=== PATIENT | female | born 1950 | race Native Hawaiian/Other Pacific Islander ===

== ENCOUNTER 2024-02-20 15:45 | Inpatient (IN) | payer MEDICARE, MEDICAID, SELFPAY ==
[2024-02-20] VITALS (39 sets, daily range): BP systolic 63–139; BP diastolic 36–114; PULSE 79–161; RESP 13–36; TEMP 37.1–38.3; O2SAT 77–100; BMI 36.0
--- NOTE | 2024-02-20 16:08 | EKG_ITS ---
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
--- NOTE | 2024-02-20 16:13 | XR_ITS ---
Examination: AP chest single view Technique one AP portable upright chest single view Exam date and time: February 20, 2024 6017 hours Comparison January 26, 2022 Indications: Gastrointestinal bleeding today. Findings: Extensive parenchymal disease right upper lobe Right internal jugular dialysis catheter tip satisfactory position Moderate enlargement left ventricle Moderate enlargement thoracic aorta Central pulmonary arteries are prominent Impression: Findings most consistent with prominent right upper lobe pneumonia, follow-up chest imaging is needed to document clearing Central pulmonary vascular congestion
--- NOTE | 2024-02-20 16:15 | PC.NURSE ---
Pt. here from [facility] to bed 7 for coughing up blood for a week, pt. is hypotensive, and pt. is a little more confused per facility staff at [facility]. Pt. is not confused here, pt. is GCS of 15, pt. states she is here because they just noticed she was coughing up blood today. Pt. has dialysis access to right upper chest and states she had 3 hour dialysis today, pt. states dialysis days are T,,Sat. Pt. states she is coughing up brownish red blood. Pt. lower extremities are very dark in color and pt. states they have been like that. Pt. is SOB and can speak in sentences but gets winded and takes a break between Dr. Fry questions.
[2024-02-20] MEDS: SODIUM CHLORIDE 0.9% 250 ML 250 ML 999 ML IV (16:50)
[2024-02-20] MEDS: cefTRIAXone/D5w 1gm IV premix 50 ML IV (16:51)
--- NOTE | 2024-02-20 16:54 | PD.EDGIBLD ---
ED GI Bleed RME/HPI General Chief complaint: GI Bleed Stated complaint: LOW BLOOD PRESSURE Time Seen by Provider: 02/20/24 16:36 Arrival date/time: 02/20/24 15:45 RME / HPI RME / HPI Narrative: DR. MORELAND MAIN ED EVALUATION: 73 year old female presents to the Emergency Department with complaint of hemoptysis onset 1 week. She states she has been coughing a lot and she has some brownish material coming out. Denies blood in the stools. She states she has been wheezing too. No abdominal pain. PMHx: CHF, diabetes type 2, hysterectomy and section. Social Hx: No tobacco, alcohol, or substance use. Related Data Home Medications ?Medication ?Instructions ?Recorded ?Confirmed acetaminophen 500 mg tablet 500 mg PO Q12HR PRN PAIN #0 tabs 10/13/16 01/27/22 (Tylenol Extra Strength) albuterol sulfate 2.5 mg/3 mL 2.5 mg HHN Q6H PRN sob #0 ea 10/13/16 01/27/22 (0.083 %) solution for nebulization allopurinol 100 mg tablet 100 mg PO QDAY #0 tabs 10/13/16 01/27/22 (Zyloprim) bumetanide 1 mg tablet 1 mg PO BID #0 tabs 10/13/16 01/27/22 bisacodyl 10 mg rectal suppository 10 mg AK Q72H PRN Constipation 12/09/21 01/27/22 (Dulcolax (bisacodyl)) bisacodyl 5 mg tablet,delayed 15 mg PO Q72H PRN Constipation 12/09/21 01/27/22 release calcium 500 mg (as 1 tab PO BID 12/09/21 01/27/22 carbonate)-vitamin D3 5 mcg (200 unit) tablet (Oyster Shell Calcium-Vitamin D3) calcium carbonate 1,500 mg PO Q8H PRN Indigestion 12/09/21 01/27/22 carvedilol 25 mg tablet 25 mg PO BID High Blood Pressure 12/09/21 01/27/22 cranberry extract 425 mg capsule 425 mg PO BID 12/09/21 01/27/22 diphenhydramine HCl 25 mg tablet 25 mg PO Q6H PRN Itching 12/09/21 01/27/22 docusate sodium 250 mg capsule 250 mg PO BID 12/09/21 01/27/22 fluticasone furoate 100 1 inh inhalation QDAY Asthma 12/09/21 01/27/22 mcg/actuation blister powder for inhalation (Arnuity Ellipta) hydralazine 50 mg tablet 50 mg PO QID High Blood Pressure 12/09/21 01/27/22 insulin glargine 100 unit/mL 8 unit subcut HS 12/09/21 01/27/22 subcutaneous solution (Lantus U-100 Insulin) liraglutide 0.6 mg/0.1 mL (18 mg/3 1.2 mg subcut DAILY 12/09/21 01/27/22 mL) subcutaneous pen injector (Victoza 3-Saurabh) loratadine 10 mg tablet 10 mg PO HS 12/09/21 01/27/22 losartan 100 mg tablet 100 mg PO BID High Blood Pressure 12/09/21 01/27/22 magnesium hydroxide 400 mg/5 mL 30 ml PO Q72H PRN Constipation 12/09/21 01/27/22 oral suspension (Milk of Magnesia) olopatadine 0.2 % eye drops 1 drp ophthalmic (eye) QDAY 12/09/21 01/27/22 pantoprazole 40 mg tablet,delayed 40 mg PO QDAY 12/09/21 01/27/22 release polyvinyl alcohol 1.4 % eye drops 1 drp ophthalmic (eye) Q6H PRN Dry 12/09/21 01/27/22 (Artificial Tears (polyvinyl Eyes alcohol)) ropinirole 0.5 mg tablet 0.5 mg PO UD 12/09/21 01/27/22 sodium phosphates 19 gram-7 118 ml AK Q72H PRN Constipation 12/09/21 01/27/22 gram/118 mL enema (Fleet Enema) vitamin B complex-vitamin C-folic 1 tab PO QDAY 12/09/21 01/27/22 acid 0.8 mg tablet (Nephro-Lorraine) amlodipine 10 mg tablet 10 mg PO UD 01/27/22 01/27/22 calcium acetate(phosphat bind) 667 667 mg PO TID 01/27/22 01/27/22 mg tablet fluticasone propionate 45 2 puff inhalation BID 01/27/22 01/27/22 mcg-salmeterol 21 mcg/actuation HFA inhaler Previous Rx's ?Medication ?Instructions ?Recorded amoxicillin 500 mg-potassium 1 tab PO BID #20 tabs 01/31/22 clavulanate 125 mg tablet (Augmentin) apixaban 2.5 mg tablet (Eliquis) 2.5 mg PO BID #60 tabs 01/31/22 ascorbate calcium (vitamin C) 500 500 mg PO BID #60 tabs 01/31/22 mg tablet zinc gluconate 50 mg tablet 50 mg PO QDAY #30 tabs 01/31/22 Allergies Allergy/AdvReac Type Severity Reaction Status Date / Time iodine Allergy Severe Swelling Verified 12/09/21 12:33 tetracycline Allergy Unknown FACE Verified 12/09/21 12:33 NUMBNESS Review of Systems Review of Systems Systems Reviewed: All systems reviewed, normal except as documented Narrative Review of Systems: GEN: No fever, no chills, no weight loss EYES: No discharge, no visual changes, no pain HEENT: No ear pain, no congestion, no sore throat PULM: No shortness of breath, + hemoptysis?, + cough CV: No chest pain, no dyspnea on exertion, no palpitations GI: No nausea, no vomiting, no diarrhea, no pain, no constipation : No frequency, no urgency and no dysuria MUSC/SKEL: No joint pain, no back pain SKIN: No rash PSYCH: No hallucinations, no depression HEME/LYMPH: No easy bleeding or bruising tendencies NEURO: No weakness, no headache Past Medical History Past Medical History CARDIAC: Positive Cardiac Disorders, Congestive Heart Failure and Congenital Heart Disease RESPIRATORY: Positive Chronic Obstructive Pulmonary Disease (COPD) and Asthma GENITOURINARY: Positive Renal Disease REPRODUCTIVE: Positive Previous Pregnancies ENDOCRINE: Positive Diabetes Mellitus Type 2; Negative Diabetes Mellitus Type 1 HEMATOLOGIC: Negative Sickle Cell Disease Family History FAMILY HISTORY: Positive Family Psychiatric Problems and Family Gastrointestinal Problems Surgical History SURGICAL: Positive Hysterectomy and Section Social History SMOKING STATUS: Never smoker SECOND HAND EXPOSURE: No ED Exam Narrative Physical exam: GENERAL APPEARANCE: Well hydrated, well nourished. Patient is huffing and puffing, coughing with brown material in the cough. VITALS: All vitals were reviewed and the pulse ox is 90% on room air which is hypoxic according to my interpretation. HEENT: Normocephalic, atramatic, EOMI, EACs are patent. There is no bulge or retraction. Throat without erythema or exudate. Moist oromucosa. No jaundice NECK: Supple, no JVD or bruits. CARDIOVASCULAR: Heart regular without S3-S4 or murmur. No rubs or gallops. LUNGS/CHEST: Rhonchi in the right upper area. ABDOMEN: Soft, nontender, with normal bowel sounds. No pulsatile masses. No rebound, rigidity, or guarding. No incarcerated hernia. Normal inspection and palpation. RECTAL: Rectal exam, female nurse bias cutter helper present at bedside, shows soft brown stools, guaiac negative. EXTREMITIES: No edema, clubbing, or cyanosis. Intact CSM. Normal inspection and palpation. SKIN: Warm and dry without rashes. Normal inspection. MUSCULOSKELETAL: No gross deformity, full ROM all extremities. Normal inspection. NEURO: Alert and oriented x3. Cranial nerves II through XII grossly intact. There are no other motor or sensory deficits noted. PSYCHIATRIC: Normal mood and affect. No psychosis. Course Course Course Narrative: 1800: Patient was signed out to Dr. Agrawal. Past medical, surgical, social and family history reviewed. Vitals and home medications reviewed. Results and treatment plan discussed. They will assume the care of the patient at this time and will follow the patient, pending remainder of diagnostics tests and final disposition. Quality Measures none Orders Category Date Time Status Bedside COVID-19 Antigen Test NOW Care 02/20/24 18:05 Active Bedside Influenza A&B Antigen Test NOW Care 02/20/24 18:06 Active EKG (ED ONLY) *Do not use* NOW Care 02/20/24 16:10 Completed EKG (ED Only) Stat Exams 02/20/24 16:08 Draft XR chest 1V portable Stat Exams 02/20/24 16:13 Completed B-Type Natriuretic Peptide Stat Lab 02/20/24 16:39 Completed Blood Culture (Lab) Stat Lab 02/20/24 18:07 Ordered CBC Stat Lab 02/20/24 17:56 Received Comprehensive Metabolic Panel Stat Lab 02/20/24 16:39 Completed Lactic Acid [Lactate (Lactic Acid)] Stat Lab 02/20/24 18:06 Ordered Procalcitonin Stat Lab 02/20/24 18:06 Ordered Troponin I Stat Lab 02/20/24 16:39 Completed Type and Screen Stat Lab 02/20/24 16:39 Results Urinalysis Stat Lab 02/20/24 16:10 Ordered Urine Culture Stat Lab 02/20/24 16:10 Ordered prbc [Red Blood Cells] Stat Lab 02/20/24 16:39 Results Acetaminophen Tab [Tylenol Tab] Med 02/20/24 18:05 Once 650 mg PO X1 ONE Norepinephrine/D5W 8mg/250ml [Levophed in D5W 8mg/250ml Med 02/20/24 17:32 Discontinued ] 8 mg in 250 ml IV .STK-MED Norepinephrine/NS 16mg/250ml [Levophed in NS 16mg/250ml Med 02/20/24 16:43 Pending ] 16 mg in 250 ml IV 0.05 mcg/kg/min Sodium Chloride 0.9% 250 ml [Ns] 250 ml Med 02/20/24 16:43 Discontinued IV 999 mls/hr cefTRIAXone/D5w 1gm IV premix [Rocephin/D5w 1gm IV Med 02/20/24 16:37 Discontinued premix] 50 ml IV X1 Vital Signs Vital signs: Vital Signs Temperature 99.4 F 02/20/24 16:24 Pulse Rate 123 H 02/20/24 16:24 Respiratory Rate 31 H 02/20/24 16:24 Blood Pressure 73/42 L 02/20/24 16:24 Pulse Oximetry (%) 90 L 02/20/24 16:24 Oxygen Delivery Method Room Air 02/20/24 16:24 GI Bleed MDM Narrative MDM Narrative:: I, Margaret Bose, am scribing for and in the presence of Dr. Moreland. Patient presented here for coughing up blood. The patient is very adamant that she did not vomit or having any bloody stool. I did rectal exam on her and found out that her stool was yellow and white is negative. She did not have fever when she first came in. And she been coughing. But she is alert awake oriented x 4 GCS of 15. O2 saturation of 100% on 2 L. Therefore I did not see any reason to intubate her at that time. As far as the blood pressure was concerned it was low. I gave her 250 normal saline bolus but he did not do anything. Concerning about the fact that she is renal failure, I ordered for Levophed drip. Levophed drip is being hungry now. Chest x-ray by me: Evidence of right upper lobe pneumonia. Heart normal. Mediastinum normal. Vas-Cath is in good position. No pneumohemothorax. Twelve-lead EKG that was done at 1710 by me: Sinus rhythm. Heart rate of 116. Normal axis. No ST elevation or depression. No PVC. No STEMI. Regular rate and rhythm. So far CBC is still pending. BUN and creatinine of 42 and 5.8 respectively secondary to end-stage renal failure. Troponin level is 0.146. BNP is more than 3000 which is consistent with renal failure. Pending MAGEN COVID-19, influenza, lactic acid, procalcitonin and blood cultures x 2. 5:45 PM I spoke to discussed with Dr. bowling pc support specialist attending and also his ICU resident. They agreed to assess the patient for admission to the ICU. 5:55 PM, just before I left the ER because my shift ends at 6 PM, the patient spiked a fever to 101. I am starting the sepsis workup. I am ordering for lactic acid, procalcitonin, blood culture and Tylenol. Results are pending of course. I also ordered for COVID-19 and influenza. Result is also pending. 6 PM, the end of my shift and the beginning of Dr. Ca. The patient is stable and is signed out to Dr. Agrawal pending ICU evaluation and admission. Critical care time is approximately 45 minutes excluding any procedure. The high probability of sudden, clinically significant deterioration in the patient?s condition required the highest level of my preparedness to intervene urgently. The services I provided to this patient were to treat and/or prevent clinically significant deterioration. Services included the following: chart data review, reviewing nursing notes and/or old charts, documentation time, home energy consultant supervisor collaboration regarding findings and treatment options, medication orders and management, direct patient care, vital sign assessments and ordering, interpreting and reviewing diagnostic studies and lab tests. Aggregate critical care time includes only time during which I was engaged in work directly related to the patient?s care, as described above, whether at bedside or elsewhere in the Emergency Department. It did not include time spent performing other reported procedures or the services of residents, students, nurses or physician assistants. Patient data External records reviewed:: [facility] previous records (Reviewed last ED visit dated 08/12/23, discharged with the following: ESRD (end stage renal disease).) and EMS form Clinical information provided by:: patient and EMS Social determinants that could affect healthcare access:: none Patient has the following chronic illnesses:: CHF, diabetes type 2, hysterectomy and section. How is presenting disease/condition affected by chronic disease/condition?: uneffected by Evaluation data The following diagnostics were reviewed and interpreted by me:: lab results, radiology exam(s) and EKG tracing(s) Lab and/or radiology exams considered but not ordered:: none Interpretation Summary: See above under MDM narrative. RADIOLOGY Procedure(s): XR chest 1V portable Accession Number(s): [id number] cc: Tha Kaplan MD; Jake Moreland MD~ Examination: AP chest single view Technique one AP portable upright chest single view Exam date and time: February 20, 2024 6017 hours Comparison January 26, 2022 Indications: Gastrointestinal bleeding today. Findings: Extensive parenchymal disease right upper lobe Right internal jugular dialysis catheter tip satisfactory position Moderate enlargement left ventricle Moderate enlargement thoracic aorta Central pulmonary arteries are prominent Impression: Findings most consistent with prominent right upper lobe pneumonia, follow-up chest imaging is needed to document clearing Central pulmonary vascular congestion Dictated By: Tha Kaplan MD Medications / Prescriptions Medications or Prescriptions considered but not ordered:: none Medication administrations:: Medication Administration History Norepinephrine Bitartrate (Levophed In Ns 16mg/250ml) 16 mg in 250 mls @ 0 mls/hr IV .Q0M PRN; Protocol PRN Reason: PER protocol Stop: 03/21/24 16:42 Discontinued Medications Ceftriaxone Sodium/Dextrose (Rocephin/D5w 1gm Iv Premix) 50 mls @ 100 mls/hr IV X1 ONE Stop: 02/20/24 17:06 Last Infusion: 02/20/24 17:21 Dose: Infused Documented By: Admin: 02/20/24 16:51 Dose: 100 mls/hr Documented By: ED Sodium Chloride (Ns) 250 mls @ 999 mls/hr IV .Q16M ONE Stop: 02/20/24 16:58 Last Infusion: 02/20/24 17:06 Dose: Infused Documented By: Admin: 02/20/24 16:50 Dose: 999 mls/hr Documented By: ED Norepinephrine/Dextrose (Levophed In D5w 8mg/250ml) Confirm Administered Dose 8 mg in 250 mls @ ud IV .STK-MED ONE Stop: 02/20/24 17:33 Last Admin: 02/20/24 17:55 Dose: 7.6 mls/hr Documented By: ED see above Consultations Consultation(s) initiated? (list below): No Diagnosis GI bleed differential diagnosis: other (Apparently there is no GI bleed. Only hemoptysis. And pneumonia.) Most likely diagnosis given after review of the tests above:: Hemoptysis. Pneumonia. end staged renal disease Admission Indicated Admission indicated?: not indicated Explain why admission is indicated or not indicated:: No final disposition plan at this time, still pending diagnostic tests. Patient signout to the overnight caregiver provider. Admission Request Was there a request for admission?: No Disposition Plan Disposition Plan: other (specify) (Patient signout to the overnight caregiver provider. ) Discharge Plan Plan Disposition Comment: Stable at signout. Prescriptions/Referrals Prescriptions/Med Rec: No Action albuterol sulfate 2.5 MG/3 ML solution for nebulization 2.5 mg HHN Q6H PRN (Reason: sob) Qty: 0 allopurinol [Zyloprim] 100 MG tablet 100 mg PO QDAY Qty: 0 acetaminophen [Tylenol Extra Strength] 500 MG tablet 500 mg PO Q12HR PRN (Reason: PAIN) Qty: 0 bumetanide 1 MG tablet 1 mg PO BID Qty: 0 calcium acetate(phosphat bind) 667 mg Tablet 667 mg PO TID fluticasone propion-salmeterol 45-21 mcg/actuation Hfa Aerosol Inhaler 2 puff INHALATION BID amlodipine 10 mg Tablet 10 mg PO UD Rx Instructions: 10 MG THURSDAY, THURSDAY, THURSDAY, THURSDAY zinc gluconate 50 mg Tablet 50 mg PO QDAY Qty: 30 0RF Eliquis 2.5 mg Tablet 2.5 mg PO BID Qty: 60 0RF ascorbate calcium (vitamin C) 500 mg tablet 500 mg PO BID Qty: 60 0RF amoxicillin-pot clavulanate [Augmentin] 500-125 mg tablet 1 tab PO BID Qty: 20 0RF cranberry extract 425 mg Capsule 425 mg PO BID carvedilol 25 mg Tablet 25 mg PO BID Rx Instructions: must administer with a meal/food insulin glargine [Lantus U-100 Insulin] 100 unit/mL Solution 8 unit SUBCUT HS polyvinyl alcohol [Artificial Tears (polyvin alc)] 1.4 % Drops 1 drp OPHTHALMIC (EYE) Q6H PRN (Reason: Dry Eyes) magnesium hydroxide [Milk of Magnesia] 400 mg/5 mL Suspension 30 ml PO Q72H PRN (Reason: Constipation) bisacodyl [Dulcolax (bisacodyl)] 10 mg Suppository 10 mg AK Q72H PRN (Reason: Constipation) pantoprazole 40 mg Tablet,Delayed Release (Dr/Ec) 40 mg PO QDAY ropinirole 0.5 mg Tablet 0.5 mg PO UD Rx Instructions: Give 0.5 mg po qd on THU, VANI, and SAT only diphenhydramine HCl 25 mg Tablet 25 mg PO Q6H PRN (Reason: Itching) Fleet Enema 19-7 gram/118 mL Enema 118 ml AK Q72H PRN (Reason: Constipation) Nephro-Lorraine 0.8 mg Tablet 1 tab PO QDAY bisacodyl 5 mg Tablet,Delayed Release (Dr/Ec) 15 mg PO Q72H PRN (Reason: Constipation) calcium carbonate 500 mg calcium (1,250 mg) Tablet,Chewable 1,500 mg PO Q8H PRN (Reason: Indigestion) hydralazine 50 mg Tablet 50 mg PO QID docusate sodium 250 mg Capsule 250 mg PO BID losartan 100 mg Tablet 100 mg PO BID loratadine 10 mg Tablet 10 mg PO HS calcium carbonate-vitamin D3 [Oyster Shell Calcium-Vit D3] 500 mg-5 mcg (200 unit) Tablet 1 tab PO BID olopatadine 0.2 % Drops 1 drp OPHTHALMIC (EYE) QDAY Victoza 3-Saurabh 0.6 mg/0.1 mL (18 mg/3 mL) pen injector 1.2 mg SUBCUT DAILY Arnuity Ellipta 100 mcg/actuation Blister With Device 1 inh INHALATION QDAY Problem List Clinical Impression: Hemoptysis, End stage renal disease on dialysis, Pneumonia, Acute hypotension Patient/Caregiver Discharge Instructions Print Language: Cymro
[2024-02-20 16:55] LABS: Basophils % (Auto) 0 % (0-2.5); Eosinophils % (Auto) 0 % (0-10); Monocytes # (Auto) 1.1 Thou/mm3 (0.0-0.8); Monocytes % (Auto) 8 % (0-12); Nucleated Red Blood Cell % 0 /100 WBC (0)
[2024-02-20 17:25] LABS: B-Type Natriuretic Peptide > 3280 pg/mL (0-100)
[2024-02-20 17:30] LABS: Alanine Aminotransferase < 7 U/L (10-49); Albumin, Serum 4.4 gm/dL (3.4-4.8); Albumin/Globulin Ratio 1.3 (1.2-2.2); Alkaline Phosphatase 70 U/L (46-116); Anion Gap 16 (7-16); Aspartate Amino Transferase 25 U/L (0-34); BUN/Creatinine Ratio 7 Ratio (12-20); Bilirubin,Total 0.5 mg/dL (0.3-1.2); Blood Urea Nitrogen 42 mg/dL (9-23); Carbon Dioxide 23.3 mMol/L (20.0-31.0); Chloride 96 mMol/L (98-107); Creatinine (Component) 5.8 mg/dL (0.6-1.3); Globulin 3.3 gm/dL (2.3-3.5); Glucose 158 mg/dL (74-106); Osmolality,Calculated 283 (275-295); Potassium 4.6 mMol/L (3.4-5.1); Sodium 135 mMol/L (136-145); Total Protein 7.7 gm/dL (5.7-8.2); eGFR 7 See Note
[2024-02-20 17:37] LABS: Troponin I 0.146 ng/mL (0.0-0.045)
--- NOTE | 2024-02-20 17:56 | PC.NURSE ---
Pt. stating she wanted to go to [facility], pt. has a fistula to left arm.
[2024-02-20 18:04] LABS: Hemoglobin 11.2 g/dL (12.0-16.0); Immature Granulocytes % (Auto) 1 % (0-0); Immature Granulocytes Auto 0.15 Thou/mm3 (0.00-0.00); Lymphocytes # (Auto) 0.6 Thou/mm3 (1.0-4.8); Lymphocytes % (Auto) 4 % (10-50); Mean Corpuscular Hemoglobin 32.7 pg (25.0-35.0); Mean Corpuscular Volume 102 fL (80-100); Neutrophils # (Auto) 12.2 Thou/mm3 (1.8-7.7); Neutrophils % (Auto) 87 % (37-80); Red Blood Count 3.43 Miln/mm3 (4.00-5.20)
[2024-02-20 18:07] LABS: Platelet Count 80 Thou/mm3 (140-440)
--- NOTE | 2024-02-20 18:10 | PD.EDADDENDU ---
Emergency Room Addendum <Margaret Bose - Last Filed: 02/20/24 18:10> Addendum Narrative: 1800: Care assumed from Dr. Fry, the previous shift emergency physician. Past medical, surgical, social and family history reviewed. Vitals and home medications reviewed. I will assume the care of the patient at this time, pending diagnostics tests and final disposition. Please refer to the emergency department record for history and examination from initial visit.? Physical exam by me shows patient under no acute distress at this time. <Montse Agrawal MD - Last Filed: 02/20/24 18:31> Addendum Narrative: 1800: Care assumed from Dr. Fry, the previous shift emergency physician. Past medical, surgical, social and family history reviewed. Vitals and home medications reviewed. I will assume the care of the patient at this time, pending diagnostics tests and final disposition. Please refer to the emergency department record for history and examination from initial visit.? Patient is awake blood pressure 116/80. At this time she does not want a central line. The hemodialysis catheter will be used for access if needed but the patient does have 2 lines. The patient is admitted at this time she does not need any further care from the emergency department.
--- NOTE | 2024-02-20 18:25 | PC.NURSE ---
Dr. Alcantar and Dr. Carrion are bedside talking with pt. and pt. refusing central line, pt. stating she has 3 developmentally delayed daughters and she raised them on her own, pt. states she needs to talk to them first. Pt. coughing up thick blood sputum.
[2024-02-20] MEDS: ACETAMINOPHEN 325 MG TABLET 650 MG PO (18:38)
--- NOTE | 2024-02-20 18:51 | XR_ITS ---
Examination: CT chest, without intravenous contrast. Sagittal and coronal 2-D reconstructions. Exam date and time: February 20, 2024 1747 hrs. Indications: Onset hemoptysis today CTDI:vol (mGy) 19.1 DLP: (mGycm) 744 Technique: Multiple 3.0 mm axial sections of the chest to been obtained. Bone and lung density settings are obtained. Sagittal and coronal 2-D reconstructions have been obtained. Low dose protocols were performed. One or more of the following dose reduction techniques were used; automated exposure control, adjustment of the mA and/or KV according to patient size, use of iterative reconstruction technique. Findings: AP dimension ascending thoracic aorta 4 cm Pulmonary artery segments are not enlarged Heavy calcification left anterior descending coronary artery Mild enlargement left ventricle Prominent pneumonia in the right upper lobe Mild vascular congestion No pleural disease No visualized liver or splenic lesion Absent gallbladder No pancreatic or adrenal mass Atrophic kidneys with severe renal cortical thinning Impression: Dense consolidation right upper lobe most consistent with pneumonia Follow-up chest imaging is needed to document clearing
[2024-02-20 18:59] LABS: Procalcitonin 2.14 ng/ml (0.0-0.49)
[2024-02-20] MEDS: Norepinephrine/D5W 8mg/250ml 8 MG/250 ML BAG 7.584 MG IV (19:00)
--- NOTE | 2024-02-20 19:11 | PC.RT ---
pt able to expectora a pink, red frothy secretions sent to lab obtained at 19;07.
--- NOTE | 2024-02-20 19:12 | ESHP_ITS ---
<Statement entered by Rik Carrion DO - 02/20/24 22:25> Senior attestation: Patient was examined and case was reviewed with team including attending physician. Note reviewed, I agree with most of its contents and agree with the patient's care. In summary, patient is a 73 year old female with history of ESRD on HD (//Thu), hypertension, T2DM, restless leg syndrome, asthma, and stomach ulcer who presented to the ED from SNF with concerns of hemoptysis for 2 weeks, was found to be hypotensive with recorded blood pressure 73/42 upon arrival. Patient was started on levophed in the ED, imaging findings suggesting RUL PNA. Patient will be admitted to ICU further management of septic shock likely secondary to healthcare-associated RUL PNA, will be started on broad spectrum IV abx (vancomycin and zosyn), will give gentle fluids given ESRD history, and order blood/urine cultures. Will further investigate pneumonia with cocci, RSV, influenzae, asperigillus, and sputum cultures, chest CT ordered with possible V/Q scan planned pending CT results for possible pulmonary embolism. Will consult bolt machine operator Dr. Beltre for patient's ESRD history and dialysis sessions, we appreciate recommendations. Of note, patient was AOx3 and agreeable for ICU admission, stated DNR/DNI code status and refused a central line placement at this time. Will continue pressors peripherally at this time, wean down as tolerated. Rik Carrion DO PGY-3 Documentation for date of: 02/20/24 HPI History of Present Illness Chief complaint: coughing up blood History of present illness: Jennifer Medina is a 73 yr female with PMH of ESRD on HD (/THU/THU), hypertension, T2 diabetes mellitus, restless leg syndrome, asthma, and stomach ulcer who presented to ED from SNF after coughing up blood from past 1-2 weeks. Patient is poor historian and not willing to share much history and refusing to answer questions. Medical history was obtained from chart review. Patient denied any fever. However endorses shortness of breath, bright red stool in rectum due to hemorrhoids, fatigue. Patient stated that she has a previous endoscopy which showed stomach ulcer. In Ed, vitals significant for hypotension 73/42, tachycardia 123, tachypneic 31, temperature 101, saturating 90% on room air. Labs revealed leukocytosis WBC 14, mild anemia hemoglobin 11.2, MCV 102, thrombocytopenia 80, sodium 135, potassium 4.6, CR 5.8, glucose 158, troponin elevated 0.146, BNP greater than 3280, procalcitonin 2.14. Diagnostic testing reveals Right upper lobe pneumonia and Potter hump on chest x-ray. EKG negative for any acute ischemic changes. Patient was given 250 mL bolus normal saline, ceftriaxone x 1, nor epi, and Zosyn x 1. It was explained to patient that there will be need central catheter procedure. However patient refused and stated that she did not want any aggressive life-saving measures. At this time patient is DNR/DNI. GI Dr. Pate and nephrology Dr. Orellana were consulted. Patient admitted for septic shock secondary to pneumonia and evaluation of hemoptysis. PMH: as noted above PSH: Refused to answer FamHx: Refused to answer Social: Stays at SNF, has 3 daughters with mental disability. Denies any drinking, drug use. Review of Systems Constitutional Constitutional: Reports system reviewed and no additional complaints, except as documented Exam Vital Signs Temp Pulse Resp BP Pulse Ox O2 Del Method O2 Flow Rate 101.0 F H 126 H 23 H 116/88 H 96 Nasal Cannula 2 02/20/24 18:38 02/20/24 19:10 02/20/24 19:10 02/20/24 18:20 02/20/24 19:10 02/20/24 18:20 02/20/24 19:10 Narrative Exam General: Alert and oriented x3. No acute distress, uncooperative Eyes: Pupils are equal and reactive to light bilaterally HEENT: Atraumatic, normocephalic. No JVD noted. Mucosa dry with dried blood on mucosa. Cardiovascular: Normal S1 and S2. Regular rate and rhythm. No pitting edema Respiratory: Lungs are clear to auscultation bilaterally. No wheezing or crackles heard. Abdomen: Soft, nontender, not distended, normal bowel sounds. Skin: Warm to touch, dry, no rashes noted, bilateral lower extremity significant for venous stasis dermatitis, very dark and discolored Musculoskeletal: No gross injuries. Able to move all 4 extremities. Neuro: Alert and oriented x3. No focal neuro deficits. Psych: Normal affect and mood Results: Labs 02/24/24 05:35 02/24/24 05:35 Labs: Short CBC 02/20/24 Range/Units 17:56 WBC 14.0 H (3.6-11.0) Thou/mm3 Hgb 11.2 L (12.0-16.0) g/dL Hct 35.0 L (36.0-46.0) % Plt Count 80 L (140-440) Thou/mm3 BMP 02/20/24 16:39 Sodium 135 L Potassium 4.6 Chloride 96 L Carbon Dioxide 23.3 BUN 42 H Creatinine 5.8 H* Glucose 158 H Calcium 9.0 Cardiac Enzymes 02/20/24 Range/Units 16:39 Troponin I 0.146 H* (0.0-0.045) ng/mL Liver Function 02/20/24 Range/Units 16:39 Total Bilirubin 0.5 (0.3-1.2) mg/dL AST 25 (0-34) U/L ALT < 7 L (10-49) U/L Alkaline Phosphatase 70 (46-116) U/L Albumin 4.4 (3.4-4.8) gm/dL Quality Measures Quality Measures none Advance care planning discussed with:: patient Medications Home Medications and Allergies Home Medications ?Medication ?Instructions ?Recorded ?Confirmed ?Type acetaminophen 500 mg tablet 500 mg PO Q12HR PRN PAIN #0 tabs 10/13/16 02/21/24 History (Tylenol Extra Strength) albuterol sulfate 2.5 mg/3 mL 2.5 mg HHN Q6H PRN sob #0 ea 10/13/16 01/27/22 History (0.083 %) solution for nebulization allopurinol 100 mg tablet 100 mg PO QDAY #0 tabs 10/13/16 01/27/22 History (Zyloprim) bumetanide 1 mg tablet 1 mg PO BID #0 tabs 10/13/16 02/21/24 History bisacodyl 10 mg rectal suppository 10 mg MT Q72H PRN Constipation 12/09/21 02/21/24 History (Dulcolax (bisacodyl)) bisacodyl 5 mg tablet,delayed 15 mg PO Q72H PRN Constipation 12/09/21 02/21/24 History release calcium 500 mg (as 1 tab PO BID 12/09/21 02/21/24 History carbonate)-vitamin D3 5 mcg (200 unit) tablet (Oyster Shell Calcium-Vitamin D3) calcium carbonate 750 mg PO Q8H PRN Indigestion 12/09/21 01/27/22 History carvedilol 25 mg tablet 25 mg PO BID High Blood Pressure 12/09/21 01/27/22 History cranberry extract 425 mg capsule 425 mg PO BID 12/09/21 02/21/24 History diphenhydramine HCl 25 mg tablet 25 mg PO Q6H PRN Itching 12/09/21 02/21/24 History docusate sodium 250 mg capsule 250 mg PO BID 12/09/21 02/21/24 History fluticasone furoate 100 1 inh inhalation QDAY Asthma 12/09/21 01/27/22 History mcg/actuation blister powder for inhalation (Arnuity Ellipta) hydralazine 50 mg tablet 50 mg PO QID High Blood Pressure 12/09/21 01/27/22 History insulin glargine 100 unit/mL 12 unit subcut HS 12/09/21 02/21/24 History subcutaneous solution (Lantus U-100 Insulin) liraglutide 0.6 mg/0.1 mL (18 mg/3 1.2 mg subcut DAILY 12/09/21 01/27/22 History mL) subcutaneous pen injector (Victoza 3-Saurabh) loratadine 10 mg tablet 10 mg PO HS allergies 12/09/21 02/21/24 History losartan 100 mg tablet 100 mg PO QDAY High Blood Pressure 12/09/21 02/21/24 History magnesium hydroxide 400 mg/5 mL 30 ml PO Q72H PRN Constipation 12/09/21 01/27/22 History oral suspension (Milk of Magnesia) olopatadine 0.2 % eye drops 1 drp ophthalmic (eye) QDAY 12/09/21 02/21/24 History pantoprazole 40 mg tablet,delayed 40 mg PO QDAY 12/09/21 02/21/24 History release polyvinyl alcohol 1.4 % eye drops 1 drp ophthalmic (eye) Q6H PRN Dry 12/09/21 02/21/24 History (Artificial Tears (polyvinyl Eyes alcohol)) ropinirole 0.5 mg tablet 0.5 mg PO UD restless leg syndrome 12/09/21 02/21/24 History after dialysis sodium phosphates 19 gram-7 118 ml MT Q72H PRN Constipation 12/09/21 02/21/24 History gram/118 mL enema (Fleet Enema) vitamin B complex-vitamin C-folic 1 tab PO QDAY 12/09/21 02/21/24 History acid 0.8 mg tablet (Nephro-Lorraine) amlodipine 10 mg tablet 10 mg PO UD 01/27/22 02/21/24 History calcium acetate(phosphat bind) 667 667 mg PO TID 01/27/22 02/21/24 History mg tablet fluticasone propionate 45 1 puff inhalation BID 01/27/22 02/21/24 History mcg-salmeterol 21 mcg/actuation HFA inhaler acetaminophen 500 mg tablet mg 02/21/24 History baclofen 10 mg tablet 10 mg PO Q6H PRN muscle spasms 02/21/24 02/21/24 History dulaglutide 0.75 mg/0.5 mL 0.75 mg subcut QWEEK 02/21/24 02/21/24 History subcutaneous [facility]) glucagon 1 mg injection kit mg 02/21/24 02/21/24 History insulin aspart U-100 100 unit/mL 1 sliding scale dose subcut 02/21/24 History subcutaneous solution (Novolog USEASDIRECTD U-100 Insulin aspart) levofloxacin 250 mg tablet 250 mg PO QDAY 02/21/24 02/21/24 History metoprolol tartrate 25 mg tablet 25 mg PO BID 02/21/24 02/21/24 History Allergies Allergy/AdvReac Type Severity Reaction Status Date / Time iodine Allergy Severe Swelling Verified 12/09/21 12:33 tetracycline Allergy Unknown FACE Verified 12/09/21 12:33 NUMBNESS Visit Medications Acetaminophen (Acetaminophen 325 Mg Tablet) 650 mg PO Q6H PRN PRN Reason: Fever >101.5 Stop: 03/21/24 18:39 Dextrose (Dextrose 50%-Water Inj 50 Ml Syringe) 25 ml IV Q15MIN PRN PRN Reason: BG 50-70 responsive npo pt Stop: 03/21/24 18:51 Dextrose (Dextrose 50%-Water Inj 50 Ml Syringe) 50 ml IV Q15MIN PRN PRN Reason: BG <50 OR BG <70 & pt unresponsive Stop: 03/21/24 18:51 Glucagon (Glucagon Inj 1 Mg Vial) 1 mg IM Q15MIN PRN PRN Reason: BG <70, and no IV access Sodium Chloride (Ns) 1,000 mls @ 75 mls/hr IV .[id number] [facility] Stop: 03/21/24 18:44 Piperacillin Sod/Tazobactam (Sod 4.5 gm/ Sodium Chloride) 100 mls @ 200 mls/hr IV Q6HR NEMO Stop: 02/27/24 18:48 Vancomycin/Sodium Chloride (Vancomycin/Ns 1 Gm Ivpb) 200 mls @ 120 mls/hr IV X1 ONE Stop: 02/20/24 20:39 Piperacillin Sod/Tazobactam (Sod 4.5 gm/ Sodium Chloride) 100 mls @ 200 mls/hr IV X1 ONE Stop: 02/20/24 19:44 Norepinephrine/Dextrose (Levophed In D5w 8mg/250ml) 8 mg in 250 mls @ 7.584 mls/hr IV .Q24H PRN; Protocol PRN Reason: PER PROTOCOL Stop: 03/21/24 17:54 Insulin Human Lispro (Insulin Lispro (Admelog) 1 Unit/0.01 Ml Unit) 0 unit SC Q6HR NEMO; Protocol Stop: 03/21/24 18:59 Ondansetron HCl (Ondansetron Inj 2 Mg/Ml Inj 2 Ml) 4 mg IV Q6H PRN; Protocol PRN Reason: NAUSEA OR VOMITING Stop: 03/21/24 18:39 Pharmacy Consult (Vancomycin Pharmacy To Dose 1 Each Each) 1 each IV QDAY PRN PRN Reason: CONSULT Stop: 03/21/24 18:59 Discontinued Medications Acetaminophen (Acetaminophen 325 Mg Tablet) 650 mg PO X1 ONE Stop: 02/20/24 18:06 Last Admin: 02/20/24 18:38 Dose: 650 mg Ceftriaxone Sodium/Dextrose (Rocephin/D5w 1gm Iv Premix) 50 mls @ 100 mls/hr IV X1 ONE Stop: 02/20/24 17:06 Last Infusion: 02/20/24 17:21 Dose: Infused Sodium Chloride (Ns) 250 mls @ 999 mls/hr IV .Q16M ONE Stop: 02/20/24 16:58 Last Infusion: 02/20/24 17:06 Dose: Infused Norepinephrine Bitartrate (Levophed In Ns 16mg/250ml) 16 mg in 250 mls @ 3.792 mls/hr IV .Q24H PRN; Protocol PRN Reason: PER protocol Stop: 03/21/24 16:42 Sodium Chloride (Ns) 250 mls @ 999 mls/hr IV .Q16M ONE Stop: 02/20/24 18:55 Last Admin: 02/20/24 19:00 Dose: Not Given Sodium Chloride (Sodium Chloride Rt 10% 15 Ml Nebu) 5 ml INH X1 ONE Stop: 02/20/24 18:41 Last Admin: 02/20/24 19:09 Dose: Not Given Assessment & Plan Plan Jennifer Medina is a 73 yr female with PMH of ESRD on HD (T/VANI/SAT), hypertension, T2 diabetes mellitus, restless leg syndrome, asthma, and stomach ulcer who presented to ED from SNF after coughing up blood from past 1-2 weeks. Patient is poor historian and not willing to share much history and refusing to answer questions. GI Dr. Pate and nephrology Dr. Orellana were consulted. Patient admitted for septic shock secondary to pneumonia and evaluation of hemoptysis. Neuro: No active problems Cardiovasc: #Septic shock 2/2 pneumonia Etiology: Most likely HAP as patient resides in nursing facility. Patient presented with elevated WBC, tachycardia, fever, tachypnea. MAP 52. She was started on norepinephrine subsequent improvement of MAP and blood pressure. -Continue norepinephrine per sepsis protocol -Continue to monitor blood pressure and MAP goal greater than 65 -Antibiotics in place (refer below) #Elevated troponins 0.146 on admission. Patient denies any chest pain, no acute ischemic changes on EKG. -Trend troponin levels 3 times every 6 hours #Suspected CHF Patient does not appear to be fluid overloaded on exam. No crackles auscultated. No documented recent echo. BNP on admission greater than 3280. -echo pending Pulm: #Septic shock 2/2 HAP Defer CTA as of right now due to history of contrast allergy. -CT chest pending -VQ scan pending -Start vancomycin/Zosyn for MRSA and Pseudomonas coverage -trend lactic acid every 4 hrs #Hemoptysis Etiology: Underlying stomach ulcer, cocci, viral infection, fungal infection, cancer, PE, PA H, Hx thrombocytopenia Presenting since past 1-2 weeks. Denies any headache, dizziness. -Follow-up on diagnostic imaging as noted above Renal: #Hx ESRD on hemodialysis Nephrology Dr. Orellana was consulted -Recommendations pending GI: #Hx stomach ulcer -Continue pantoprazole 40 mg IV daily Endo: #History of type 2 diabetes On admission initial glucose 158. Last A1c 5.4 on 01/28/2022. -Held home medications -Bedside blood glucose checks ACHS -Insulin lispro sliding scale -Carb consistent low diet -A1c pending Heme/Onc: #Macrocytic anemia Etiology: Folate deficiency, B12 deficiency Hemoglobin 11.2, MCV 102 -Continue to monitor #Hx thrombocytopenia Etiology: Possibly due to underlying end-stage renal disease. Patient has never had workup for underlying cause. On admission platelet count 80 -Monitor with daily CBC ID: #Septic shock 2/2 pneumonia Etiology: Most likely hospital-acquired pneumonia as patient resides in SNF. Hemoptysis indicating also underlying pulmonary disease such as viral, fungal infection. Chest x-ray showedParenchymal disease in right upper lobe, Potter hump. -Follow-up with aspergillosis antigen test -Blood cultures pending ? Urine cultures pending ? Cocci serology pending ? Influenza panel pending ? RSV pending ? Sputum culture, Gram stain pending -Start vancomycin and4.5 g IV Zosyn every 6 hours Health maintenance: Dispo: ICU for management of septic shock secondary to pneumonia and evaluation of hemoptysis DVT prophylaxis: SCDs CODE STATUS:DNR Diet: Low carb consistent The patient's management plan was discussed with my attending physician Dr. De Paz and seniors Dr. Carrion/Dr. Alcantar. Naty Mathew, PGY-1 Attending Provider Attestation/Addendum Patient was not seen on date of service. He was notified of admission by the above resident, Naty Mathew MD. patient noted history of end-stage renal disease on hemodialysis and volume overload who presented with ongoing hemoptysis with significant right upper lobe infiltrates. Follow-up sputum culture and sampling for other potential etiologies. Viral etiology to be excluded as well. The patient also with mostly parenchymal disease making pulmonary embolism less likely though this cannot be excluded. She has a contrast allergy and thus we are not able to perform CTA at this time. Was criteria suggestive of intermediate possibility though infection seems the most likely cause given that she has evolving severe sepsis with septic shock now. I agree with the broad-spectrum antibiotics at this point given she is a resident of SNF. I remain available overnight for any concerns/questions and will follow-up with the patient tomorrow morning during rounds.
--- NOTE | 2024-02-20 19:15 | PC.NURSE ---
Assumed care of pt. Pt A&O x4, GCS 15. Received report from hernan Luna. Pt on Levophed drip that per report was started at 1755. Pt on 2L NC, tolerating well. VS updated. Pt not actively coughing blood at this time but has dried blood noted around mouth. UA ordered but pt states she does not make urine. Refusing straight cath at this time. Bed locked in lowest position, call light within reach.
[2024-02-20] MEDS: PIPER/TAZO INJ 4.5 GM in SODIUM CHLORIDE 0.9% (P) 100 ML IV (19:22)
[2024-02-20] MEDS: SODIUM CHLORIDE 0.9% 1000 ML 1,000 ML 75 ML IV (19:22)
--- NOTE | 2024-02-20 19:25 | ECHO_ITS ---
Transthoracic Echo Report Ht (in): 59 Wt (lb): 178 Exam Location: Portable Status: Inpatient Inspector Conveyor Line: Lou Melo Indications: Procedure Performed: BP: 112 / 62 HR: 94 Rhythm: Tachycardia Technical Quality: Technically difficult study MEASUREMENTS (Male / Female) Normal Values 2D ECHO LVOT Diameter 1.9 cm Ascending Aorta Diameter 4.3 cm M-MODE Aortic Root Diameter MM 2.6 cm LA Systolic Diameter MM 2.3 cm LA Ao Ratio MM 0.9 AV Cusp Separation MM 1.7 cm DOPPLER AV Peak Velocity 146.0 cm/s AV Peak Gradient 8.5 mmHg AV Mean Gradient 5.0 mmHg AV Velocity Time Integral 23.2 cm LVOT Peak Velocity 103.0 cm/s LVOT Peak Gradient 4.2 mmHg LVOT Velocity Time Integral 20.7 cm LVOT Cardiac Index 2942.1 cm?/min?m? AV Area Cont Eq vti 2.5 cm? AV Area Cont Eq pk 2.0 cm? MV Peak Velocity 76.0 cm/s MV Peak Gradient 2.3 mmHg MV Mean Velocity 54.8 cm/s MV Mean Gradient 1.0 mmHg MV Area PHT 3.8 cm? Mitral E Point Velocity 86.9 cm/s Mitral A Point Velocity 85.5 cm/s Mitral E to A Ratio 1.0 LV E' Lateral Velocity 6.4 cm/s Mitral E to LV E' Lateral Ratio 13.5 LV E' Septal Velocity 4.7 cm/s Mitral E to LV E' Septal Ratio 18.6 TR Peak Velocity 257.0 cm/s TR Peak Gradient 26.4 mmHg FINDINGS Left Ventricle Normal left ventricular size, wall thickness, systolic function with no obvious regional wall motion abnormalities. The ejection fraction is visually estimated at 50-55 %. Right Ventricle The right ventricle is severely dilated. Mild systolic dysfunction. The estimated right ventricular systolic pressure, 41 mmHg. RAP 15. Left Atrium The left atrium is normal by two-dimensional, color flow and Doppler imaging with no structural abnormalities, no thrombus formation present. Right Atrium The right atrium is moderately dilated. Atrial Septum The interatrial septum appears normal with no evidence of a shunt. Aorta The ascending aorta is moderately dilated. 4.3cm. Mitral Valve The mitral valve is normal by two-dimensional, color flow and Doppler interrogation. There is trace mitral valve regurgitation. Aortic Valve The aortic valve is trileaflet and normal by two-dimensional, color flow and Doppler interrogation. There is no significant aortic valve regurgitation. Tricuspid Valve The tricuspid valve is normal by two-dimensional, color flow and Doppler interrogation. There is mil d tricuspid valve regurgitation. Pulmonic Valve There is mild pulmonic valve regurgitation. Vessels The pulmonary artery appears normal. The inferior vena cava pulmonary and hepatic veins appear ronit l. Pericardium The pericardium is normal by two-dimensional imaging. There is no significant pericardial effusion. CONCLUSIONS Normal LV size and function. Estimated EF 50-55% Moderate RV dilatation. Mild RV dysfunction. Estimated RVSP 41mmHg Moderate RA dilatation. The ascending aorta is moderately dilated. 4.3cm. Trace mitral and trace tricuspid regurgitation Meredith Johansen (Electronically Signed) Final Date: 22 February 2024 13:40
[2024-02-20] MEDS: VANCOMYCIN/NS 1 GM IVPB 200 ML IV (19:59)
--- NOTE | 2024-02-20 20:02 | PC.NURSE ---
Pt taken to and from CT by RN and BIOSTATISTICS DIRECTOR. Pt remained on vitals monitor during entirety of exam.
--- NOTE | 2024-02-20 20:19 | PC.NURSE ---
Attempting to contact ICU residents in regards to RBC order. Current Hgb is 11.2. Verified this value with lab. No answer x2.
--- NOTE | 2024-02-20 20:41 | PC.NURSE ---
Per Dr. Gerardo, hold off on RBC at this time. Leave order on standby.
--- NOTE | 2024-02-20 21:05 | PC.NURSE ---
Spoke with Linn at [facility]. Informed her that pt is admitted to ICU.
--- NOTE | 2024-02-20 22:14 | PRELIM_ITS ---
CT scan of the chest without intravenous contrast (axial sections with sagittal and coronal reformats ) February 20, 2024 1947 hours Clinical History: Hemoptysis. Comparison: No prior study is available f or comparison. Findings:There is mass like consolidation in the right upper lobe measuring approximat tamia 6 x 5 cm with peripheral opacities and small satellite nodules. The right upper lobar bronchus ap pears to be partially occluded. There is mild bronchial wall thickening. No evidence of pleural effus ion or pneumothorax.There is moderate cardiomegaly. Central venous line is noted with its tip in the right atrium. The mediastinum demonstrates no significant lymphadenopathy on this noncontrast study. The aorta and its branches demonstrate atheromatous calcification. At the level of the aortic arch, t here is a linear hyperdensity with calcification within the aortic lumen. There is no pericardial eff usion. Coronary artery calcification is present.The visualized upper abdominal viscera are unremarkab le on this noncontrast study.Moderate degenerative changes are identified in the spine.Impression:1. Dense mass like consolidation in the right upper lobe with partial occlusion of right upper lobar bro nchus, concerning for lung neoplasm. Recommend further evaluation. 2. At the level of the aortic arc h, there is a linear hyperdensity with calcification within the aortic lumen. Aortic dissection canno t be excluded on this noncontrast study. Recommend clinical correlation, comparison with prior studie s and further evaluation with intravenous contrast CT, as indicated. Discussion Details: Results Di scussed With : Dr. Gerardo at 09:34 PM 02/20/2024 Report Electronically Signed By: Librado Mallory 2024 10:13:22 PM [EST]
[2024-02-20 23:29] LABS: Lactate (Lactic Acid) 2.2 mMol/L (0.4-2.0)
[2024-02-20 23:33] LABS: Basophils % (Auto) 0 % (0-2.5); Eosinophils % (Auto) 0 % (0-10); Hematocrit 37.5 % (36.0-46.0); Hemoglobin 11.8 g/dL (12.0-16.0); Immature Granulocytes % (Auto) 3 % (0-0); Immature Granulocytes Auto 0.48 Thou/mm3 (0.00-0.00); Lymphocytes # (Auto) 0.9 Thou/mm3 (1.0-4.8); Lymphocytes % (Auto) 5 % (10-50); Mean Corpuscular HGB Conc 31.5 g/dl (31.0-37.0); Mean Corpuscular Hemoglobin 32.6 pg (25.0-35.0); Mean Corpuscular Volume 104 fL (80-100); Monocytes # (Auto) 1.5 Thou/mm3 (0.0-0.8); Monocytes % (Auto) 9 % (0-12); Neutrophils # (Auto) 13.9 Thou/mm3 (1.8-7.7); Neutrophils % (Auto) 83 % (37-80); Nucleated Red Blood Cell % 0 /100 WBC (0); Platelet Count 87 Thou/mm3 (140-440); RDW Standard Deviation 53.8 fL (36.4-46.3); Red Blood Count 3.62 Miln/mm3 (4.00-5.20); White Blood Count 16.8 Thou/mm3 (3.6-11.0)
[2024-02-20 23:54] LABS: Troponin I 0.566 ng/mL (0.0-0.045)
[2024-02-21] VITALS (112 sets, daily range): BP systolic 71–140; BP diastolic 47–100; PULSE 75–153; RESP 0–89; TEMP 36.1–37.7; O2SAT 89–99; BMI 36.4
[2024-02-21 02:26] LABS: Reflex Lactate? Y
[2024-02-21 06:20] LABS: Lactic Acid, 3 HR 2.1 mMol/L (0.4-2.0)
[2024-02-21 06:26] LABS: Basophils # (Auto) 0.1 Thou/mm3 (0.0-0.2); Basophils % (Auto) 1 % (0-2.5); Eosinophils # (Auto) 0.1 Thou/mm3 (0.0-0.5); Eosinophils % (Auto) 1 % (0-10); Hematocrit 39.7 % (36.0-46.0); Hemoglobin 12.6 g/dL (12.0-16.0); Immature Granulocytes % (Auto) 4 % (0-0); Immature Granulocytes Auto 0.73 Thou/mm3 (0.00-0.00); Lymphocytes # (Auto) 0.6 Thou/mm3 (1.0-4.8); Lymphocytes % (Auto) 4 % (10-50); Mean Corpuscular HGB Conc 31.7 g/dl (31.0-37.0); Mean Corpuscular Hemoglobin 32.6 pg (25.0-35.0); Mean Corpuscular Volume 103 fL (80-100); Monocytes # (Auto) 1.3 Thou/mm3 (0.0-0.8); Monocytes % (Auto) 8 % (0-12); Neutrophils % (Auto) 83 % (37-80); Nucleated Red Blood Cell % 0 /100 WBC (0); Platelet Count 95 Thou/mm3 (140-440); RDW Standard Deviation 56.8 fL (36.4-46.3); Red Blood Count 3.87 Miln/mm3 (4.00-5.20); White Blood Count 16.8 Thou/mm3 (3.6-11.0)
[2024-02-21 06:34] LABS: Glucose Estimated Average 126 mg/dL (80-131)
[2024-02-21 08:24] LABS: Albumin, Serum 4.2 gm/dL (3.4-4.8); Albumin/Globulin Ratio 1.3 (1.2-2.2); Alkaline Phosphatase 72 U/L (46-116); Anion Gap 12 (7-16); Aspartate Amino Transferase 27 U/L (0-34); BUN/Creatinine Ratio 8 Ratio (12-20); Bilirubin,Total 0.3 mg/dL (0.3-1.2); Blood Urea Nitrogen 58 mg/dL (9-23); Calcium 8.6 mg/dL (8.3-10.6); Calcium (Corrected) 8.6 mg/dL (8.5-10.1); Carbon Dioxide 26.3 mMol/L (20.0-31.0); Cardiac Risk Estimate 3.8 RATIO (3.7-5.6); Chloride 97 mMol/L (98-107); Cholesterol 129 mg/dL (132-200); Creatinine (Component) 7.1 mg/dL (0.6-1.3); Estimated Creatinine Clearance 6.6 mL/min (>60); Globulin 3.3 gm/dL (2.3-3.5); Glucose 247 mg/dL (74-106); HDL Cholesterol 34 mg/dL (40-60); LDL Cholesterol,Calculated 64 mg/dL (0-130); Magnesium 1.9 mg/dL (1.6-2.6); Osmolality,Calculated 294 (275-295); Phosphorous 7.2 mg/dL (2.4-5.1); Sodium 135 mMol/L (136-145); Thyroid Stimulating Hormone 1.26 uIU/mL (0.55-4.78); Total Protein 7.5 gm/dL (5.7-8.2); Triglycerides 154 mg/dL (30-150); Vancomycin,Random 16.6 mcg/mL; eGFR 6 See Note
[2024-02-21 08:26] LABS: Troponin I 0.966 ng/mL (0.0-0.045)
[2024-02-21 08:28] LABS: Alanine Aminotransferase 9 U/L (10-49)
[2024-02-21 10:12] LABS: Lactate (Lactic Acid) 1.2 mMol/L (0.4-2.0)
[2024-02-21] MEDS: FLUCONAZOLE/NS 400 MG IVPB 400 MG/200 ML BAG 100 MG IV (10:12)
[2024-02-21] MEDS: PANTOPRAZOLE INJ 40 MG VIAL IV (10:12)
--- NOTE | 2024-02-21 10:26 | PC.CC ---
Rounding note: Pt Jennifer Medina is a 73 yr od female admitted to ICU for septic shock. Pt is from [facility]. Pt identified as possible downgrade.
[2024-02-21 10:38] LABS: INR 1.1 (0.9-1.3); Partial Thromboplastin Time 24.6 Seconds (22.0-36.0); Prothrombin Time 11.6 Seconds (9.0-12.2)
[2024-02-21] MEDS: LIDOCAINE HCL 1% 20 ML VIAL INFL (11:27)
--- NOTE | 2024-02-21 12:47 | PC.CC ---
Pt Jennifer Medina is a 73 yr old female admitted to ICU for septic shock. ASW met with pt at bedside to complete initial assessment. At time of encounter pt is noted to be alert and oriented to person, place and situation. Pt able to confirm all demographic information. Pt is from [facility]. Per pt she is a snf resident being in skilled setting for last 10 yrs. Pt identifies her sister in-law as surrogate MD. Pt unable to provide name or phone number for her sister in law. From review of past encounters pt has identified her brother Jose Browning [phone] as surrogate DM. At baseline pt reports requiring a walker, can and wheel chair to support ambulation. Pt states she requires support in completing ADLs. Pt is diabetic and is on dialysis, , and Thursday at [facility] dialysis center. Per pt she does not require supplemental O2. Pt is followed by Dr. Bauer for primary care. Pt followed by Dr. Beltre for nephrology. At time of D/c pt will return to [facility]. Pt will need transport at time of D/c.
[2024-02-21 13:34] LABS: Respiratory Syncytial Virus Ag Negative (Negative)
[2024-02-21] MEDS: AMIODARONE 150 MG IVPB 150 MG/100 ML BAG 600 MG IV (13:38)
[2024-02-21] MEDS: AMIODARONE 360 MG IVPB 360 MG/200 ML BAG 33.333 MG IV (14:10)
[2024-02-21] MEDS: Magnesium Sulfate 2 GM Ivpb 2 GM/50 ML BAG IV (14:12)
[2024-02-21 14:50] LABS: Cocci Serology, IgM Negative (Negative)
[2024-02-21] MEDS: PIPER/TAZO 3.375 GM 50 ML IV ×2 (16:33→21:02)
--- NOTE | 2024-02-21 17:59 | PD.RESPRO ---
Documentation for date of: 02/21/24 Subjective Subjective Interval history: Patient was seen and examined at bedside in ICU. Patient is noncompliant and refuses to answer most questions, she refused central line placement and insulin. Her IV fluids were discontinued. Patient was weaned off from norepinephrine overnight however during the day and required restart of norepinephrine at small dose. Her hemoptysis has reduced however did not resolve.Chest CT showed dense mass like consolidation in the right upper lobe with partial occlusion of right upper lobar bronchus, concerning for lung neoplasm; at the level of the aortic arch, there is a linear hyperdensity with calcification within the aortic lumen, aortic dissection cannot be excluded on this noncontrast study. Given her contrast allergy patient will not be able to undergo CTA. Fluconazole was added to her regimen today. Lactic acid downtrending from 2.2-1.2. [facility] confirm patient is taking Eliquis but we will hold it due to hemoptysis. 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 Around noon patient developed A-fib with heart rate around 150s, she was started on amiodarone drip. Exam Vital Signs Temp Pulse Resp BP Pulse Ox O2 Del Method O2 Flow Rate 97.3 F 109 H 35 H 92/57 L 98 Nasal Cannula 2 02/21/24 12:02 02/21/24 16:00 02/21/24 16:00 02/21/24 16:00 02/21/24 16:00 02/21/24 15:45 02/21/24 15:45 Narrative Exam Gen: Well-developed and well-nourished. HEENT: NCAT, PERRLA, EOMI, MMM, anicteric conjunctivae. CVS: normal S1 and S2. Irregulary irregular. No M/R/G. Resp: rhonchi and crackles B/L. No rales or wheezing. Abd: soft, obese, non-tender, non-distended. BS+ in all 4 quadrants. MSK: Good ROM in BUE & BLE. Venous stasis dermatitis BLE. No edema. Neuro: CN II-XII grossly intact. Strength 5/5 in BUE & BLE. Alert and oriented x3. Psych: Appears angry and uncooperative. Objective Labs 02/24/24 05:35 02/24/24 05:35 Labs: Laboratory Results - last 24 hr 02/20/24 02/20/24 02/20/24 16:39 17:16 17:56 WBC 14.0 H RBC 3.43 L Hgb 11.2 L Hct 35.0 L MCV 102 H MCH 32.7 MCHC 32.0 RDW Std Deviation 53.0 H Plt Count 80 L Neut % (Auto) 87 H Lymph % (Auto) 4 L Ector % (Auto) 8 Eos % (Auto) 0 Baso % (Auto) 0 Neut # (Auto) 12.2 H Lymph # (Auto) 0.6 L Ector # (Auto) 1.1 H Eos # (Auto) 0.0 Baso # (Auto) 0.0 Immature Gran # (Auto) 0.15 H Absolute Nucleated RBC 0.00 Immature Gran % 1 H Nucleated RBC % 0 PT INR APTT Sodium Potassium Chloride Carbon Dioxide Anion Gap BUN Creatinine Estim Creat Clear Calc eGFR BUN/Creatinine Ratio Glucose Estimated Ave Glu mg/dL Hemoglobin A1c Calculated Osmolality Lactic Acid Calcium Corrected Calcium Phosphorus Magnesium Total Bilirubin AST ALT Alkaline Phosphatase Troponin I Total Protein Albumin Globulin Albumin/Globulin Ratio Triglycerides Cholesterol LDL Cholesterol, Calc HDL Cholesterol Cholesterol/HDL Ratio Procalcitonin 2.14 H TSH Random Vancomycin Coccidioides IgM Ab RSV Rapid Blood Type O Positive Antibody Screen NEGATIVE Crossmatch See Detail Blood Bank Wristband ID Yes 02/20/24 02/21/24 02/21/24 23:10 05:59 07:20 WBC 16.8 H 16.8 H RBC 3.62 L 3.87 L Hgb 11.8 L 12.6 Hct 37.5 39.7 MCV 104 H 103 H MCH 32.6 32.6 MCHC 31.5 31.7 RDW Std Deviation 53.8 H 56.8 H Plt Count 87 L 95 L Neut % (Auto) 83 H 83 H Lymph % (Auto) 5 L 4 L Ector % (Auto) 9 8 Eos % (Auto) 0 1 Baso % (Auto) 0 1 Neut # (Auto) 13.9 H 14.0 H Lymph # (Auto) 0.9 L 0.6 L Ector # (Auto) 1.5 H 1.3 H Eos # (Auto) 0.0 0.1 Baso # (Auto) 0.0 0.1 Immature Gran # (Auto) 0.48 H 0.73 H Absolute Nucleated RBC 0.00 0.00 Immature Gran % 3 H 4 H Nucleated RBC % 0 0 PT INR APTT Sodium 135 L Potassium 5.0 Chloride 97 L Carbon Dioxide 26.3 Anion Gap 12 BUN 58 H Creatinine 7.1 H* D Estim Creat Clear Calc 6.6 L eGFR 6 L* BUN/Creatinine Ratio 8 L Glucose [address] Glu mg/dL 126 Hemoglobin A1c 6.0 Calculated Osmolality 294 Lactic Acid 2.2 H 2.1 H Calcium 8.6 Corrected Calcium 8.6 Phosphorus 7.2 H Magnesium 1.9 Total Bilirubin 0.3 AST 27 ALT 9 L Alkaline Phosphatase 72 Troponin I 0.566 H* D 0.966 H* D Total Protein 7.5 Albumin 4.2 Globulin 3.3 Albumin/Globulin Ratio 1.3 Triglycerides 154 H Cholesterol 129 L LDL Cholesterol, Calc 64 HDL Cholesterol 34 L Cholesterol/HDL Ratio 3.8 Procalcitonin TSH 1.26 Random Vancomycin 16.6 Coccidioides IgM Ab Negative RSV Rapid Blood Type Antibody Screen Crossmatch Blood Bank Wristband ID 02/21/24 02/21/24 10:02 12:25 WBC RBC Hgb Hct MCV MCH MCHC RDW Std Deviation Plt Count Neut % (Auto) Lymph % (Auto) Ector % (Auto) Eos % (Auto) Baso % (Auto) Neut # (Auto) Lymph # (Auto) Ector # (Auto) Eos # (Auto) Baso # (Auto) Immature Gran # (Auto) Absolute Nucleated RBC Immature Gran % Nucleated RBC % PT 11.6 INR 1.1 APTT 24.6 Sodium Potassium Chloride Carbon Dioxide Anion Gap BUN Creatinine Estim Creat Clear Calc eGFR BUN/Creatinine Ratio Glucose Estimated Ave Glu mg/dL Hemoglobin A1c Calculated Osmolality Lactic Acid 1.2 Calcium Corrected Calcium Phosphorus Magnesium Total Bilirubin AST ALT Alkaline Phosphatase Troponin I Total Protein Albumin Globulin Albumin/Globulin Ratio Triglycerides Cholesterol LDL Cholesterol, Calc HDL Cholesterol Cholesterol/HDL Ratio Procalcitonin TSH Random Vancomycin Coccidioides IgM Ab RSV Rapid Negative Blood Type Antibody Screen Crossmatch Blood Bank Wristband ID Quality Measures Quality Measures none Advance care planning discussed with:: patient Assessment & Plan Assessment Current Active Medications: Generic Name Dose Route Start Last Admin Trade Name Freq PRN Reason Stop Dose Admin Acetaminophen 650 mg 02/20/24 18:40 Acetaminophen 325 Mg Tablet PO 03/21/24 18:39 Q6H PRN Fever >101.5 Albuterol 2 puff 02/21/24 09:36 Albuterol Inh 8 Gm INH 03/22/24 09:35 Q4HR PRN SHORTNESS OF BREATH OR WHEEZE Dextrose 25 ml 02/20/24 18:52 Dextrose 50%-Water Inj 50 Ml Syringe IV 03/21/24 18:51 Q15MIN PRN BG 50-70 responsive npo pt Dextrose 50 ml 02/20/24 18:52 Dextrose 50%-Water Inj 50 Ml Syringe IV 03/21/24 18:51 Q15MIN PRN BG <50 OR BG <70 & pt unresponsive Glucagon 1 mg 02/20/24 18:52 Glucagon Inj 1 Mg Vial IM Q15MIN PRN BG <70, and no IV access Piperacillin/Tazobactam/Dextrose 50 mls @ 12.5 mls/hr 02/21/24 09:00 02/21/24 16:33 Zosyn IV 02/28/24 08:59 12.5 mls/hr Q12HR NEMO Administration Norepinephrine/Dextrose 8 mg in 250 mls @ 7.584 mls/hr 02/20/24 17:55 02/21/24 12:15 Levophed In D5w 8mg/250ml IV 03/21/24 17:54 0.03 mcg/kg/min .Q24H PRN 4.551 mls/hr PER PROTOCOL Titration Protocol 0.05 MCG/KG/MIN Fluconazole 400 mg in 200 mls @ 100 mls/hr 02/21/24 09:37 02/21/24 10:12 Diflucan/Ns Ivpb IV 02/28/24 09:36 100 mls/hr QDAY NEMO Administration Amiodarone HCl/Dextrose 360 mg in 200 mls @ 33.333 mls/hr 02/21/24 13:41 02/21/24 14:10 Nexterone Ivpb IV 02/21/24 19:40 33.333 mls/hr .Q6H ONE Administration Amiodarone HCl/Dextrose 360 mg in 200 mls @ 16.667 mls/hr 02/21/24 19:41 Nexterone Ivpb IV 02/22/24 19:40 .Q12H NEMO Insulin Human Lispro 0 unit 02/21/24 07:30 02/21/24 16:34 Insulin Lispro (Admelog) 1 Unit/0.01 Ml Unit SC 03/22/24 07:29 Not Given ACHS [facility] Protocol Ondansetron HCl 4 mg 02/20/24 18:40 Ondansetron Inj 2 Mg/Ml Inj 2 Ml IV 03/21/24 18:39 Q6H PRN NAUSEA OR VOMITING Protocol Pantoprazole Sodium 40 mg 02/21/24 09:15 02/21/24 10:12 Pantoprazole Inj 40 Mg Vial IV 03/22/24 09:14 40 mg QDAY [facility] Administration Pharmacy Consult 1 each 02/20/24 19:00 Vancomycin Pharmacy To Dose 1 Each Each IV 03/21/24 18:59 QDAY PRN CONSULT Ropinirole HCl 0.5 mg 02/23/24 14:00 Ropinirole Hcl 0.25 Mg Tablet PO 03/24/24 13:59 [id number] [facility] Plan Jennifer Medina is a 73 yr female with PMH of ESRD on HD (T/VANI/SAT), hypertension, T2 diabetes mellitus, restless leg syndrome, asthma, and stomach ulcer who presented to ED from SNF after coughing up blood from past 1-2 weeks. Patient is poor historian and not willing to share much history and refusing to answer questions. GI Dr. Pate and nephrology Dr. Orellana were consulted. Patient admitted for septic shock secondary to pneumonia and evaluation of hemoptysis. Neuro: No active problems. Cardiovasc: #Septic shock 2/2 healthcare associated pneumonia. Etiology: Most likely HAP as patient resides in nursing facility and is a dialysis patient. Patient presented with elevated WBC, tachycardia, fever, tachypnea. MAP 52. She was started on norepinephrine subsequent improvement of MAP and blood pressure. Plan: -Continue norepinephrine per sepsis protocol. -Continue to monitor blood pressure and MAP goal greater than 65. -Antibiotics in place (refer below). #Elevated troponins. Troponin I remained uptrending, 0.146 -> 0.966. Patient denies any chest pain, no acute ischemic changes on EKG. Likely NSTEMI type II in setting of septic shock. Plan: -continue trending troponin I. #Suspected CHF. Patient does not appear to be fluid overloaded on exam. No crackles auscultated. No documented recent echo. BNP on admission greater than 3280. Plan: -echo pending. #Atrial fibrillation. Suddenly developed Afib in 150s. Plan: -started on amiodarone drip. Pulm: #Septic shock 2/2 HAP Defer CTA as of right now due to history of contrast allergy. -CT chest pending -VQ scan pending -Start vancomycin/Zosyn for MRSA and Pseudomonas coverage -trend lactic acid every 4 hrs #Hemoptysis. Etiology: Underlying stomach ulcer, cocci, viral infection, fungal infection, cancer, PE, PA H, Hx thrombocytopenia. Presenting since past 1-2 weeks. Denies any headache, dizziness. Plan: -Follow-up on diagnostic imaging as noted above. Renal: #Hx ESRD on hemodialysis. Nephrology Dr. Beltre was consulted. Plan: -Recommendations pending. GI: #Hx stomach ulcer. Plan: -Continue pantoprazole 40 mg IV daily. Endo: #History of type 2 diabetes. On admission initial glucose 158. Last A1c 5.4 on 01/28/2022. Plan: -Held home medications. -Bedside blood glucose checks ACHS. -Insulin lispro sliding scale. -Carb consistent low diet. -resumed home glargine 12 units HS. Heme/Onc: #Macrocytic anemia Etiology: Folate deficiency, B12 deficiency. Hemoglobin 11.2, MCV 102. Plan: -Continue to monitor with daily labs. #Hx thrombocytopenia. Etiology: Possibly due to underlying end-stage renal disease. Patient has never had workup for underlying cause. On admission platelet count 80. Plan: -Monitor with daily CBC. ID: #Septic shock 2/2 pneumonia. Etiology: Most likely hospital-acquired pneumonia as patient resides in SNF. Hemoptysis indicating also underlying pulmonary disease such as viral, fungal infection. Chest x-ray showedParenchymal disease in right upper lobe, Potter hump. Cocci IgM negative, RSV negative. Plan: -Follow-up with aspergillosis antigen test -Blood cultures pending -IGRA ordered. -Sputum culture pending. -continue vancomycin and4.5 g IV Zosyn every 6 hours, fluconazole was added to the regimen. Health maintenance: Dispo: ICU for management of septic shock secondary to pneumonia and evaluation of hemoptysis. DVT prophylaxis: SCDs. Lines: peripheral x2. CODE STATUS:DNR. Diet: renal with low carb consistent. Plan of care discussed with attending Dr. De Paz. Alfred Alcantar MD, PGY 2. Disclaimer: This note was dictated by speech recognition. Minor errors in inside sales lead may be present due to voice recognition software. Attending Provider Attestation/Addendum Patient seen and examined with above resident, Alfred Alcantar MD. I agree with the findings, assessment, and plan of care as documented except for any differences below. Patient developed worsening septic shock overnight. Started on peripheral norepinephrine and remains at low-dose but should it escalate patient will require central access. She remains hesitant to allow us to do this. She is notably has refused multiple interventions by her nursing staff as well. Patient notably with right upper lobe masslike consolidation concerning for postobstructive pneumonia though this may all be just be related to the mucous plugging. Follow-up imaging will be required in the long-term. In the interim, patient will also be started on fluconazole along with broad-spectrum antibiotics for healthcare acquired infection. 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 Patient notably also with atrial fibrillation with RVR precipitated by underlying infection. Given ongoing need for vasopressors cannot use calcium channel blockers or beta-blockers, amiodarone drip for rate control is warranted. Patient remains on stable oxygen at this point. Patient will contemplate allowing us to place central line this afternoon, this will be beneficial for her as she will no longer require frequent pokes for blood sampling and no need for multiple peripheral IVs to ensure that she is receiving all of the medications that she needs. Total critical care time: I personally spent 40 minutes for review of physiologic parameters, directing plan of care throughout the day, and counseling patient at bedside. This is exclusive of time spent teaching housestaff or performing any separate billable procedures. Patient remains at significant risk for further morbidity and mortality warranting ongoing close monitoring and treatment only available in the intensive care unit. Patient remains in need of critical care services for septic shock secondary to healthcare associated pneumonia.
--- NOTE | 2024-02-21 20:08 | PD.RESPROC ---
Procedures Procedure Date / Time 02/21/242007 Procedure Narrative Procedure Narrative: Attending Attestation: I was notified of failed attempt to place central line. Will proceed with plan for PICC placement by IR. Unable to pass guidewire through where likely occluded by previous HD catheter. Central Line Placement Right IJ: Indication(s): shock and poor, or inadequate peripheral venous access Informed consent obtained: from patient Time out done, and the following verified: correct patient, side and site, procedure and patient position Patient placed on monitor/pulse ox: Yes Hand Hygiene: alcohol-based hand rub Max Sterile Barrier Techniques used: cap, mask, sterile gown, sterile gloves and sterile full body drape Central line prep: Chlorhexidine scrub Local anesthesia used: lidocaine 1% Amount of anesthesia used (mL): 5 Ultrasound used for placement: Yes Sterile Technique if Ultrasound used, including sterile gel: yes Central line lumen inserted: triple Post procedure: good blood return Post procedure x-ray: other Patient tolerated procedure: well and no complications EBL(ml): 5 Procedure comment: Patient tolerated procedure well, however she declined any placement site other than the right IJ, upon attempts to place right IJ ultrasound was used and venous blood was clearly aspirated and syringe however wire could not advance past 10 cm benito without meeting significant resistance. Wire was then withdrawn and ensured venous blood return remained in syringe, multiple angles attempted to advance wire however continued to be resistant at the same depth. Another attempt at 1 cm distal to original attempt right IJ resulted in the same outcome and procedure was aborted. Resistance was likely due to right Vas-Cath catheter in place. due to need for access ultrasound guided right EJ placement was attempted and also ultimately aborted due to patient declining further needle sticks.
[2024-02-21] MEDS: AMIODARONE 360 MG IVPB 360 MG/200 ML BAG 16.667 MG IV (20:11)
[2024-02-21] MEDS: INSULIN GLARGINE (Lantus) 5 UNIT/0.05 ML (PER 5 UNITS) 12 UNIT SC (21:03)
[2024-02-21 21:49] LABS: Troponin I 0.649 ng/mL (0.0-0.045)
[2024-02-22] VITALS (143 sets, daily range): BP systolic 52–165; BP diastolic 40–143; PULSE 82–144; RESP 0–41; TEMP 35.8–37.1; O2SAT 52–100; BMI 37.1
[2024-02-22 06:29] LABS: Quantiferon-TB* See Sep Rpt
[2024-02-22 06:41] LABS: Basophils # (Auto) 0.1 Thou/mm3 (0.0-0.2); Basophils % (Auto) 0 % (0-2.5); Eosinophils # (Auto) 0.1 Thou/mm3 (0.0-0.5); Eosinophils % (Auto) 0 % (0-10); Hematocrit 37.3 % (36.0-46.0); Hemoglobin 11.7 g/dL (12.0-16.0); Immature Granulocytes % (Auto) 1 % (0-0); Immature Granulocytes Auto 0.16 Thou/mm3 (0.00-0.00); Lymphocytes # (Auto) 0.5 Thou/mm3 (1.0-4.8); Lymphocytes % (Auto) 3 % (10-50); Mean Corpuscular HGB Conc 31.4 g/dl (31.0-37.0); Mean Corpuscular Hemoglobin 32.6 pg (25.0-35.0); Mean Corpuscular Volume 104 fL (80-100); Monocytes # (Auto) 1.2 Thou/mm3 (0.0-0.8); Monocytes % (Auto) 6 % (0-12); Neutrophils # (Auto) 17.5 Thou/mm3 (1.8-7.7); Neutrophils % (Auto) 90 % (37-80); Nucleated Red Blood Cell % 0 /100 WBC (0); Platelet Count 120 Thou/mm3 (140-440); RDW Standard Deviation 55.4 fL (36.4-46.3); Red Blood Count 3.59 Miln/mm3 (4.00-5.20); White Blood Count 19.5 Thou/mm3 (3.6-11.0)
[2024-02-22 07:32] LABS: Alanine Aminotransferase 10 U/L (10-49); Albumin/Globulin Ratio 1.2 (1.2-2.2); Alkaline Phosphatase 91 U/L (46-116); Anion Gap 15 (7-16); Aspartate Amino Transferase 13 U/L (0-34); BUN/Creatinine Ratio 8 Ratio (12-20); Bilirubin,Total 0.2 mg/dL (0.3-1.2); Blood Urea Nitrogen 69 mg/dL (9-23); Calcium 8.8 mg/dL (8.3-10.6); Calcium (Corrected) 8.8 mg/dL (8.5-10.1); Carbon Dioxide 22.7 mMol/L (20.0-31.0); Chloride 94 mMol/L (98-107); Creatinine (Component) 8.4 mg/dL (0.6-1.3); Estimated Creatinine Clearance 5.7 mL/min (>60); Globulin 3.3 gm/dL (2.3-3.5); Glucose 271 mg/dL (74-106); Magnesium 2.7 mg/dL (1.6-2.6); Osmolality,Calculated 294 (275-295); Phosphorous 8.8 mg/dL (2.4-5.1); Potassium 5.3 mMol/L (3.4-5.1); Sodium 132 mMol/L (136-145); Total Protein 7.3 gm/dL (5.7-8.2); Vancomycin,Random 12.8 mcg/mL; eGFR 5 See Note
[2024-02-22] MEDS: PIPER/TAZO 3.375 GM 50 ML IV ×2 (08:12→21:20)
[2024-02-22] MEDS: SOD POLYSTYRENE SULFON SUSP 15 GM/60 ML BTL PO (08:12)
[2024-02-22] MEDS: FOLIC ACID 1 MG TABLET PO (08:12)
[2024-02-22] MEDS: SEVELAMER CARBONATE 800 MG TABLET PO ×3 (08:12→18:02)
[2024-02-22] MEDS: FLUCONAZOLE/NS 400 MG IVPB 400 MG/200 ML BAG 100 MG IV (08:12)
[2024-02-22] MEDS: INSULIN LISPRO (AdmeLOG) 1 UNIT/0.01 ML UNIT SC (08:13)
[2024-02-22] MEDS: PANTOPRAZOLE INJ 40 MG VIAL IV (08:15)
[2024-02-22] MEDS: ALBUTEROL INH 8 GM 2 PUFF INH (08:59)
[2024-02-22] MEDS: AMIODARONE 360 MG IVPB 360 MG/200 ML BAG 16.667 MG IV (09:26)
[2024-02-22 10:27] LABS: Folate 12.48 ng/mL (>5.38); Vitamin B12 > 2000 pg/mL (211-911)
--- NOTE | 2024-02-22 13:18 | PC.NURSE ---
On dialysis at this time. BP trending down 83/51, MAP 61. Malinda PARIKH increased levo to .05 mcg/kg/min. Will monitor
[2024-02-22] MEDS: Norepinephrine/D5W 8mg/250ml 8 MG/250 ML BAG 10.618 MG IV (13:33)
[2024-02-22] MEDS: ALBUMIN HUMAN 25% IVPB 25 GM/100 ML BTL IV (13:40)
[2024-02-22 13:54] LABS: Cocci Serology, IgG Negative (Negative)
[2024-02-22] MEDS: HEPARIN SOD INJ 1000 UNIT/ML VIAL 10 ML 3300 UNIT INDWELLCAT (14:59)
--- NOTE | 2024-02-22 15:36 | PC.NURSE ---
Dialysis completed for 3 hrs, pt no complaints. Respiration even and unlabored. Sating at 99% on O2 at 2L/min via nc. Able to removed 1900 ml of fluid net. Post tx BP 90/60, HR 99, Temp 97.2. Report given to Simba PARIKH
[2024-02-22] MEDS: VANCOMYCIN/NS 1 GM IVPB 200 ML IV (15:40)
--- NOTE | 2024-02-22 16:42 | PC.NURSE ---
MD ODONNELL MADE AWARE OF 20G TO RAC ASSSESSMENT. IV SITE APPEARS BRUISED AND DISCOLORED. VISUALIZED THIS IV THAT IS CURRENTLY RUNNING LEVOPHED AND IS AWARE OF ASSESSMENT. PT CURRENTLY REFUSING ANY NEEDLE POKE BY RN AND . CHARGE NURSE BRYSON AWARE.
[2024-02-22] MEDS: INSULIN GLARGINE (Lantus) 5 UNIT/0.05 ML (PER 5 UNITS) 20 UNIT SC (21:20)
--- NOTE | 2024-02-22 22:29 | ESPR_ITS ---
Documentation for date of: 02/22/24 Subjective Subjective Interval history: 02/21/24 Patient was seen and examined at bedside in ICU. Patient is noncompliant and refuses to answer most questions, she refused central line placement and insulin. Her IV fluids were discontinued. Patient was weaned off from norepinephrine overnight however during the day and required restart of norepinephrine at small dose. Her hemoptysis has reduced however did not resolve.Chest CT showed dense mass like consolidation in the right upper lobe with partial occlusion of right upper lobar bronchus, concerning for lung neoplasm; at the level of the aortic arch, there is a linear hyperdensity with calcification within the aortic lumen, aortic dissection cannot be excluded on this noncontrast study. Given her contrast allergy patient will not be able to undergo CTA. Fluconazole was added to her regimen today. Lactic acid downtrending from 2.2-1.2. [facility] confirm patient is taking Eliquis but we will hold it due to hemoptysis. 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 Around noon patient developed A-fib with heart rate around 150s, she was started on amiodarone drip. 02/21: Patient seen and examined at bedside. No events overnight. Patient continues to be noncompliant and refuses to answer questions along with refusal of sliding scale insulin and central line. Currently receiving Levophed from peripheral IV line. Will consult with radiology tomorrow for a possible PICC placement. Will start patient on p.o. amiodarone 200 mg twice daily once completed drip. Troponins are now downtrending. Patient underwent session of dialysis today. 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 Sodium 132, potassium 5.3, platelets 120. WBCs today up trended to 19.5. Continue Vanco/Zosyn for treatment of septic shock secondary to healthcare associated pneumonia. Increase glargine from 12 units to 20 units daily as she continues to refuse sliding scale insulin. Cocci IgM negative, RSV negative, preliminary blood cultures negative, urine cultures pending. Exam Vital Signs Temp Pulse Resp BP Pulse Ox O2 Del Method O2 Flow Rate 97.7 F 120 H 26 H 94/46 L 98 Nasal Cannula 2 02/22/24 16:00 02/22/24 19:32 02/22/24 19:32 02/22/24 19:32 02/22/24 19:32 02/22/24 16:00 02/22/24 15:07 FiO2 100 02/22/24 15:07 Narrative Exam Gen: Well-developed and well-nourished. HEENT:, EOMI, MMM, anicteric conjunctivae. CVS: normal S1 and S2. Irregulary irregular. No M/R/G. Resp: rhonchi and crackles B/L. No rales or wheezing. Abd: soft, obese, non-tender, non-distended. BS+ in all 4 quadrants. MSK: Good ROM in BUE & BLE. Venous stasis dermatitis BLE. No edema. Neuro: CN II-XII grossly intact. Strength 5/5 in BUE & BLE. Alert and oriented x3. Psych: Appears angry and uncooperative. Objective Labs 02/24/24 05:35 02/24/24 05:35 Labs: Laboratory Results - last 24 hr 02/20/24 02/22/24 23:10 05:59 WBC 19.5 H RBC 3.59 L Hgb 11.7 L Hct 37.3 MCV 104 H MCH 32.6 MCHC 31.4 RDW Std Deviation 55.4 H Plt Count 120 L D Neut % (Auto) 90 H Lymph % (Auto) 3 L Dodge % (Auto) 6 Eos % (Auto) 0 Baso % (Auto) 0 Neut # (Auto) 17.5 H Lymph # (Auto) 0.5 L Dodge # (Auto) 1.2 H Eos # (Auto) 0.1 Baso # (Auto) 0.1 Immature Gran # (Auto) 0.16 H Absolute Nucleated RBC 0.00 Immature Gran % 1 H Nucleated RBC % 0 Sodium 132 L Potassium 5.3 H Chloride 94 L Carbon Dioxide 22.7 Anion Gap 15 BUN 69 H Creatinine 8.4 H* D Estim Creat Clear Calc 5.7 L eGFR 5 L* BUN/Creatinine Ratio 8 L Glucose 271 H Calculated Osmolality 294 Calcium 8.8 Corrected Calcium 8.8 Phosphorus 8.8 H Magnesium 2.7 H Total Bilirubin 0.2 L AST 13 ALT 10 Alkaline Phosphatase 91 D Total Protein 7.3 Albumin 4.0 Globulin 3.3 Albumin/Globulin Ratio 1.2 Vitamin B12 > 2000 H Folate 12.48 Random Vancomycin 12.8 Coccidioides IgG Ab Negative Quality Measures Quality Measures none Advance care planning discussed with:: patient Assessment & Plan Assessment Current Active Medications: Generic Name Dose Route Start Last Admin Trade Name Freq PRN Reason Stop Dose Admin Acetaminophen 650 mg 02/20/24 18:40 Acetaminophen 325 Mg Tablet PO 03/21/24 18:39 Q6H PRN Fever >101.5 Albuterol 2 puff 02/21/24 09:36 02/22/24 08:59 Albuterol Inh 8 Gm INH 03/22/24 09:35 2 puff Q4HR PRN Administration SHORTNESS OF BREATH OR WHEEZE Dextrose 25 ml 02/20/24 18:52 Dextrose 50%-Water Inj 50 Ml Syringe IV 03/21/24 18:51 Q15MIN PRN BG 50-70 responsive npo pt Dextrose 50 ml 02/20/24 18:52 Dextrose 50%-Water Inj 50 Ml Syringe IV 03/21/24 18:51 Q15MIN PRN BG <50 OR BG <70 & pt unresponsive Folic Acid 1 mg 02/22/24 09:00 02/22/24 08:12 Folic Acid 1 Mg Tablet PO 03/23/24 08:59 1 mg QDAY NEMO Administration Glucagon 1 mg 02/20/24 18:52 Glucagon Inj 1 Mg Vial IM Q15MIN PRN BG <70, and no IV access Heparin Sodium (Porcine) 3,300 unit 02/22/24 14:55 02/22/24 14:59 Heparin Sod Inj 1000 Unit/Ml Vial 10 Ml INDWELLCAT 03/07/24 14:54 3,300 unit X1 PRN Administration DIALYSIS Piperacillin/Tazobactam/Dextrose 50 mls @ 12.5 mls/hr 02/21/24 09:00 02/22/24 21:20 Zosyn IV 02/28/24 08:59 12.5 mls/hr Q12HR NEMO Administration Norepinephrine/Dextrose 8 mg in 250 mls @ 7.584 mls/hr 02/20/24 17:55 02/22/24 17:00 Levophed In D5w 8mg/250ml IV 03/21/24 17:54 0.05 mcg/kg/min .Q24H PRN 7.584 mls/hr PER PROTOCOL Titration Protocol 0.05 MCG/KG/MIN Albumin Human 25 gm in 100 mls @ 100 mls/hr 02/22/24 13:37 02/22/24 16:00 Albuminar-25 Ivpb IV Infused PRN PRN Infusion DIALYSIS Insulin Glargine 20 unit 02/22/24 21:00 02/22/24 21:20 Insulin Glargine (Lantus) 5 Unit/0.05 Ml (Per 5 Units) SC 03/23/24 20:59 20 unit HS NEMO Administration Insulin Human Lispro 0 unit 02/21/24 07:30 02/22/24 21:27 Insulin Lispro (Admelog) 1 Unit/0.01 Ml Unit SC 03/22/24 07:29 Not Given ACHS [facility] Protocol Ondansetron HCl 4 mg 02/20/24 18:40 Ondansetron Inj 2 Mg/Ml Inj 2 Ml IV 03/21/24 18:39 Q6H PRN NAUSEA OR VOMITING Protocol Pantoprazole Sodium 40 mg 02/21/24 09:15 02/22/24 08:15 Pantoprazole Inj 40 Mg Vial IV 03/22/24 09:14 40 mg QDAY [facility] Administration Pharmacy Consult 1 each 02/20/24 19:00 Vancomycin Pharmacy To Dose 1 Each Each IV 03/21/24 18:59 QDAY PRN CONSULT Ropinirole HCl 0.5 mg 02/23/24 14:00 Ropinirole Hcl 0.25 Mg Tablet PO 03/24/24 13:59 [id number] [facility] Sevelamer Carbonate 800 mg 02/22/24 08:00 02/22/24 18:02 Sevelamer Carbonate 800 Mg Tablet PO 03/23/24 07:59 800 mg TIDWM [facility] Administration Plan Jennifer Medina is a 73 yr female with PMH of ESRD on HD (/THU/THU), hypertension, T2 diabetes mellitus, restless leg syndrome, asthma, and stomach ulcer who presented to ED from SNF after coughing up blood from past 1-2 weeks. Patient is poor historian and not willing to share much history and refusing to answer questions. GI Dr. Pate and nephrology Dr. Orellana were consulted. Patient admitted for septic shock secondary to pneumonia and evaluation of hemoptysis. Neuro: No active problems. Cardiovasc: #Septic shock 2/2 healthcare associated pneumonia. Etiology: Most likely HAP as patient resides in nursing facility and is a dialysis patient. Patient presented with elevated WBC, tachycardia, fever, tachypnea. MAP 52. She was started on norepinephrine subsequent improvement of MAP and blood pressure. Plan: -Continue norepinephrine per sepsis protocol. -Continue to monitor blood pressure and MAP goal greater than 65. -Antibiotics in place (refer below). -contact IR for possible PICC #Elevated troponins-resolving Troponin I now downtrending 0.966> 0.649. Patient denies any chest pain, no acute ischemic changes on EKG. Likely NSTEMI type II in setting of septic shock. Plan: -continue trending troponin I. -echo-EF 50-55%, normal LV size and function, moderate RV dilatation. #Atrial fibrillation. Suddenly developed Afib in 150s. Plan: -started on amiodarone drip. Pulm: #Septic shock 2/2 HAP Defer CTA as of right now due to history of contrast allergy. -CT chest 02/19--Dense consolidation right upper lobe indicating pneumonia -Start vancomycin/Zosyn for MRSA and Pseudomonas coverage #Hemoptysis. Etiology: Underlying stomach ulcer, cocci, viral infection, fungal infection, cancer, PE, PA H, Hx thrombocytopenia. Presenting since past 1-2 weeks. Denies any headache, dizziness. Plan: -treatment of underlying lung pathology as noted below Renal: #Hx ESRD on hemodialysis. Nephrology Dr. Beltre was consulted. Plan: -resume scheduled dialysis GI: #Hx stomach ulcer. Plan: -Continue pantoprazole 40 mg IV daily. Endo: #History of type 2 diabetes. On admission initial glucose 158. Last A1c 5.4 on 01/28/2022. A1c 02/22/24= 6.0. Patient continues to refuse SSI. Plan: -Held home medications. -Bedside blood glucose checks ACHS. -Insulin lispro sliding scale. -Carb consistent low diet. -increase glargine 12 to 20 untils daily starting tonight Heme/Onc: #Macrocytic anemia Etiology: Folate deficiency, B12 deficiency. Hemoglobin 11.2, MCV 102. Plan: -Continue to monitor with daily labs. #Hx thrombocytopenia. Etiology: Possibly due to underlying end-stage renal disease. Patient has never had workup for underlying cause. On admission platelet count 80. Plan: -Monitor with daily CBC. ID: #Septic shock 2/2 pneumonia. Etiology: Most likely hospital-acquired pneumonia as patient resides in SNF. Hemoptysis indicating also underlying pulmonary disease such as viral, fungal infection. Chest x-ray showedParenchymal disease in right upper lobe, Potter hump. Cocci IgM negative, RSV negative. Preliminary blood cultures negative. Plan: -Follow-up with aspergillosis antigen test -IGRA ordered. -Sputum culture pending. -continue vancomycin and4.5 g IV Zosyn every 6 hours -stop fluconzaole 400 mg daily as cocci serology negative Health maintenance: Dispo: ICU for management of septic shock secondary to pneumonia and evaluation of hemoptysis. DVT prophylaxis: SCDs. Lines: peripheral x2. CODE STATUS:DNR. Diet: renal with low carb consistent. Plan of care discussed with attending Dr. De Paz and senior Dr. Alcantar. Naty Mathew, PGY1 Attending Provider Attestation/Addendum Patient seen and examined with above resident, Naty Mathew MD. I agree with the findings, assessment, and plan of care as documented except for any differences below. Patient remains on appropriate antibiotic regimen for healthcare associated infection, she is end-stage renal disease on hemodialysis. Patient on low-dose pressors and requiring amiodarone for rate control for atrial fibrillation with RVR. Maintained on amiodarone indefinitely as the patient has underlying etiology due to sepsis that remains uncontrolled at this point. Fluid balance being maintained by nephrology with ongoing hemodialysis. Patient continues of care including blood glucose monitoring and insulin despite our reiteration on the importance. She was agreeable to attempt at central line which failed yesterday due to inability to pass guidewire. Will request IR try to attempt placing a PICC line after the patient becomes amenable to this. Patient was initially started on fluconazole empirically for potential pulmonary coccidioidomycosis as alternate etiology for masslike consolidation, however IgM remains negative and we have discontinued the fluconazole now. Patient with continued poor appetite due to underlying infection and pressor requirements these remain to be minimal even with fluid removal during HD. Will consider alternate pressors if we are unable to maintain rate control with amiodarone in conjunction with ongoing use of Levophed. Total critical care time: I personally spent 35 minutes for review of physiologic parameters, directing plan of care throughout the day, coordination of care with other subspecialists, and counseling patient at bedside. This is exclusive of time spent teaching housestaff or performing any separate billable procedures. Patient remains in need of critical care services due to healthcare acquired pneumonia with acute hypoxic respiratory failure and septic shock with atrial fibrillation. Patient remains at increased risk of morbidity and mortality warranting ongoing close monitoring and care will be available in the intensive care unit.
[2024-02-23] VITALS (125 sets, daily range): BP systolic 53–140; BP diastolic 42–94; PULSE 89–144; RESP 0–36; TEMP 36.2–37.2; O2SAT 73–100; BMI 36.5
[2024-02-23] MEDS: AMIODARONE 360 MG IVPB 360 MG/200 ML BAG 16.667 MG IV ×2 (02:25→14:49)
[2024-02-23 06:16] LABS: Basophils # (Auto) 0.1 Thou/mm3 (0.0-0.2); Basophils % (Auto) 0 % (0-2.5); Eosinophils % (Auto) 0 % (0-10); Hemoglobin 11.5 g/dL (12.0-16.0); Immature Granulocytes % (Auto) 1 % (0-0); Immature Granulocytes Auto 0.09 Thou/mm3 (0.00-0.00); Lymphocytes # (Auto) 0.4 Thou/mm3 (1.0-4.8); Lymphocytes % (Auto) 2 % (10-50); Mean Corpuscular HGB Conc 31.9 g/dl (31.0-37.0); Mean Corpuscular Hemoglobin 32.6 pg (25.0-35.0); Mean Corpuscular Volume 102 fL (80-100); Monocytes # (Auto) 1.2 Thou/mm3 (0.0-0.8); Monocytes % (Auto) 7 % (0-12); Neutrophils # (Auto) 15.8 Thou/mm3 (1.8-7.7); Neutrophils % (Auto) 90 % (37-80); Nucleated Red Blood Cell % 0 /100 WBC (0); Platelet Count 122 Thou/mm3 (140-440); RDW Standard Deviation 53.1 fL (36.4-46.3); Red Blood Count 3.53 Miln/mm3 (4.00-5.20); White Blood Count 17.6 Thou/mm3 (3.6-11.0)
[2024-02-23 07:30] LABS: Alanine Aminotransferase 7 U/L (10-49); Albumin, Serum 4.2 gm/dL (3.4-4.8); Albumin/Globulin Ratio 1.3 (1.2-2.2); Alkaline Phosphatase 86 U/L (46-116); Anion Gap 16 (7-16); Aspartate Amino Transferase 18 U/L (0-34); BUN/Creatinine Ratio 7 Ratio (12-20); Bilirubin,Total 0.2 mg/dL (0.3-1.2); Blood Urea Nitrogen 44 mg/dL (9-23); Carbon Dioxide 24.5 mMol/L (20.0-31.0); Chloride 95 mMol/L (98-107); Creatinine (Component) 6.1 mg/dL (0.6-1.3); Estimated Creatinine Clearance 7.7 mL/min (>60); Globulin 3.2 gm/dL (2.3-3.5); Glucose 277 mg/dL (74-106); Magnesium 2.4 mg/dL (1.6-2.6); Osmolality,Calculated 291 (275-295); Phosphorous 7.3 mg/dL (2.4-5.1); Sodium 135 mMol/L (136-145); Total Protein 7.4 gm/dL (5.7-8.2); eGFR 7 See Note
--- NOTE | 2024-02-23 07:35 | PC.NURSE ---
MD De Paz made aware that patient refused Insulin sliding scale. Blood sugar: 310
--- NOTE | 2024-02-23 07:39 | ESCONSULT_ITS ---
RE: DANNY VICTOR : 1950 DATE OF CONSULTATION: 02/22/2024 REASON FOR REFERRAL: ESRD management. HISTORY OF PRESENT ILLNESS: This patient is a 73-year-old [place] woman with past medical history significant for longstanding diabetes; hypertension; wheelchair bound; ESRD, on dialysis every Thursday, , and Thursday since 2013, who presented to the emergency room on 02/20/2024 with history of hemoptysis for 2 weeks. The patient was found very hypotensive while in the emergency room with BP in the 70s/50s. She was started on Levophed while in the emergency room and was transferred to ICU. Further evaluation revealed that she has a right upper lobe pneumonia. The patient was started on vancomycin and Zosyn. The patient is currently on dialysis and has been hypotensive since starting her on dialysis. She is DNR and DNI. PAST MEDICAL HISTORY: Diabetes, hypertension, ESRD, asthma, wheelchair bound. PAST SURGICAL HISTORY: Left AV graft placement. CURRENT MEDICATIONS: 1. Acetaminophen. 2. Albuterol. 3. Amiodarone drip. 4. Folic acid 1 mg p.o. daily. 5. Glucagon. 6. Lantus 20 units subcutaneous at bedtime. 7. Lispro sliding scale. 7. Zofran 4 mg IV q. 6 p.r.n. 8. Protonix 40 mg IV daily 9. Ropinirole 0.5 mg every Thursday, , Thursday 10. Sevelamer 800 mg p.o. with meals 11. Vancomycin and Zosyn. PHYSICAL EXAMINATION: GENERAL: She is awake, alert, on dialysis. VITAL SIGNS: Blood pressure of 88/50, heart rate of 110. HEENT: Anicteric sclerae. Normocephalic. Neck: Supple no JVD. CHEST AND LUNGS: Symmetrical expansion. Bilateral crackles. HEART: Without murmur. ABDOMEN: Soft and nontender. EXTREMITIES: No edema. LABORATORY DATA: Hemoglobin 11.7, WBC 13,000, platelet count [id number]. Sodium 132, potassium 5.3, chloride 94, CO2 22.7, BUN 69, creatinine 8.4, calcium 8.8. Troponin 0.649. Chest CT, dense consolidation in the right upper lobe most consistent with pneumonia. 2-D echocardiogram, LVEF of 50% to 55%. ASSESSMENT: 1. End-stage renal disease secondary to diabetic nephropathy and hypertensive nephrosclerosis. 2. Septic shock from right upper lobe pneumonia. 3. Right upper lobe pneumonia. 4. History of diabetes. 5. History of hypertension. PLAN: The patient is currently on dialysis and we are trying to remove as much as she can tolerate. I agree with current IV antibiotics, namely vancomycin and Zosyn. Continue supportive treatment. Continue vasopressor. At this point, the patient is critically ill with guarded prognosis. We will continue supportive treatment. DT: 21:25:00 TT: 22:56:00 Ref: [id number] - TID: [id number] MTDD
[2024-02-23] MEDS: ALBUMIN HUMAN 25% IVPB 25 GM/100 ML BTL IV (09:40)
[2024-02-23] MEDS: PANTOPRAZOLE INJ 40 MG VIAL IV (10:57)
[2024-02-23] MEDS: SEVELAMER CARBONATE 800 MG TABLET PO ×2 (10:57→17:50)
[2024-02-23] MEDS: MIDODRINE 5 MG TABLET PO ×3 (10:57→21:17)
[2024-02-23] MEDS: FOLIC ACID 1 MG TABLET PO (10:57)
--- NOTE | 2024-02-23 10:58 | PC.SS ---
Patient participating with dialysis today.
[2024-02-23] MEDS: HEPARIN SOD INJ 1000 UNIT/ML VIAL 10 ML 3300 UNIT INDWELLCAT (11:55)
--- NOTE | 2024-02-23 11:55 | ESPR_ITS ---
<Statement entered by Rik Carrion DO - 02/23/24 22:56> Senior attestation: Patient was examined and case was reviewed with team including attending physician. Note reviewed, I agree with most of its contents and agree with the patient's care. Patient placed on amio drip overnight due to tachycardia, rate has been improved today. Patient's glucose levels remain elevated, patient refuses subcutaneous insulin. IV insulin was initially planned, however patient was not eating and blood glucose levels improved without intervention, will consider IV insulin in glucose levels rise and patient refuses subctuaneous insulin. Zosyn has been stopped, pending PICC line to be placed tomorrow by IR team. Patient remains on levophed today. Rik Carrion DO PGY-3 Documentation for date of: 02/23/24 Subjective Subjective Interval history: 02/21/24 Patient was seen and examined at bedside in ICU. Patient is noncompliant and refuses to answer most questions, she refused central line placement and insulin. Her IV fluids were discontinued. Patient was weaned off from norepinephrine overnight however during the day and required restart of norepinephrine at small dose. Her hemoptysis has reduced however did not resolve.Chest CT showed dense mass like consolidation in the right upper lobe with partial occlusion of right upper lobar bronchus, concerning for lung neoplasm; at the level of the aortic arch, there is a linear hyperdensity with calcification within the aortic lumen, aortic dissection cannot be excluded on this noncontrast study. Given her contrast allergy patient will not be able to undergo CTA. Fluconazole was added to her regimen today. Lactic acid downtrending from 2.2-1.2. [facility] confirm patient is taking Eliquis but we will hold it due to hemoptysis. 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 Around noon patient developed A-fib with heart rate around 150s, she was started on amiodarone drip. 02/21: Patient seen and examined at bedside. No events overnight. Patient continues to be noncompliant and refuses to answer questions along with refusal of sliding scale insulin and central line. Currently receiving Levophed from peripheral IV line. Will consult with radiology tomorrow for a possible PICC placement. Will start patient on p.o. amiodarone 200 mg twice daily once completed drip. Troponins are now downtrending. Patient underwent session of dialysis today. 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 Sodium 132, potassium 5.3, platelets 120. WBCs today up trended to 19.5. Continue Vanco/Zosyn for treatment of septic shock secondary to healthcare associated pneumonia. Increase glargine from 12 units to 20 units daily as she continues to refuse sliding scale insulin. Cocci IgM negative, RSV negative, preliminary blood cultures negative, urine cultures pending. 02/22: Patient seen and examined at bedside. Overnight, patient completed amio drip but reverted back to Afib and started on additional bag of amiodarone. Continues to remain non compliant and refusing insulin. Watch sugars and start insulin drip if continue to remained uncontrolled. At this time time BS downtrending as she if refusing to eat much of her food. Scheduled for PICC line tomorrow for continued treatment of septic shock 2/2 HAP with NE 0.05mg/kg/min and van. BP continues to remain low MAPS 50-60s. Sputum cultures positive for MRSA. Discontinued zosyn. Patient is on 4L NC saturating 98-99%. WBC down trended 17.6, hemoglobin stable 11.5, platelets 122, sodium 135, potassium 4.0, bicarb 24. Patient underwent dialysis daily daily with next session planned for . Exam Vital Signs Temp Pulse Resp BP Pulse Ox O2 Del Method O2 Flow Rate 97.4 F 105 H 22 H 91/55 L 98 Nasal Cannula 3 02/23/24 11:44 02/23/24 11:45 02/23/24 11:44 02/23/24 11:45 02/23/24 11:44 02/23/24 04:00 02/23/24 11:44 FiO2 100 02/23/24 11:44 Narrative Exam Gen: Well-developed and well-nourished. HEENT:, EOMI, MMM, anicteric conjunctivae. CVS: normal S1 and S2. Irregulary irregular. No M/R/G. Resp: rhonchi and crackles B/L. No rales or wheezing. Abd: soft, obese, non-tender, non-distended. BS+ in all 4 quadrants. MSK: Good ROM in BUE & BLE. Venous stasis dermatitis BLE. No edema. Neuro: CN II-XII grossly intact. Strength 5/5 in BUE & BLE. Alert and oriented x3. Psych: irritable and uncooperative. Objective Labs 02/24/24 05:35 02/24/24 05:35 Labs: Laboratory Results - last 24 hr 02/20/24 02/23/24 02/23/24 23:10 05:00 05:49 WBC 17.6 H RBC 3.53 L Hgb 11.5 L Hct 36.0 MCV 102 H MCH 32.6 MCHC 31.9 RDW Std Deviation 53.1 H Plt Count 122 L Neut % (Auto) 90 H Lymph % (Auto) 2 L [place] % (Auto) 7 Eos % (Auto) 0 Baso % (Auto) 0 Neut # (Auto) 15.8 H Lymph # (Auto) 0.4 L [place] # (Auto) 1.2 H Eos # (Auto) 0.0 Baso # (Auto) 0.1 Immature Gran # (Auto) 0.09 H Absolute Nucleated RBC 0.00 Immature Gran % 1 H Nucleated RBC % 0 Sodium 135 L Potassium 4.0 D Chloride 95 L Carbon Dioxide 24.5 Anion Gap 16 BUN 44 H Creatinine 6.1 H* D Estim Creat Clear Calc 7.7 L eGFR 7 L* BUN/Creatinine Ratio 7 L Glucose 277 H Calculated Osmolality 291 Calcium 9.0 Corrected Calcium 9.0 Phosphorus 7.3 H Magnesium 2.4 Total Bilirubin 0.2 L AST 18 ALT 7 L Alkaline Phosphatase 86 Total Protein 7.4 Albumin 4.2 Globulin 3.2 Albumin/Globulin Ratio 1.3 Coccidioides IgG Ab Negative Quality Measures Quality Measures none Advance care planning discussed with:: patient Assessment & Plan Assessment Current Active Medications: Generic Name Dose Route Start Last Admin Trade Name Freq PRN Reason Stop Dose Admin Acetaminophen 650 mg 02/20/24 18:40 Acetaminophen 325 Mg Tablet PO 03/21/24 18:39 Q6H PRN Fever >101.5 Albuterol 2 puff 02/21/24 09:36 02/22/24 08:59 Albuterol Inh 8 Gm INH 03/22/24 09:35 2 puff Q4HR PRN Administration SHORTNESS OF BREATH OR WHEEZE Dextrose 25 ml 02/20/24 18:52 Dextrose 50%-Water Inj 50 Ml Syringe IV 03/21/24 18:51 Q15MIN PRN BG 50-70 responsive npo pt Dextrose 50 ml 02/20/24 18:52 Dextrose 50%-Water Inj 50 Ml Syringe IV 03/21/24 18:51 Q15MIN PRN BG <50 OR BG <70 & pt unresponsive Folic Acid 1 mg 02/22/24 09:00 02/23/24 10:57 Folic Acid 1 Mg Tablet PO 03/23/24 08:59 1 mg QDAY NEMO Administration Glucagon 1 mg 02/20/24 18:52 Glucagon Inj 1 Mg Vial IM Q15MIN PRN BG <70, and no IV access Heparin Sodium (Porcine) 3,300 unit 02/22/24 14:55 02/22/24 14:59 Heparin Sod Inj 1000 Unit/Ml Vial 10 Ml INDWELLCAT 03/07/24 14:54 3,300 unit X1 PRN Administration DIALYSIS Norepinephrine/Dextrose 8 mg in 250 mls @ 7.584 mls/hr 02/20/24 17:55 02/23/24 10:00 Levophed In D5w 8mg/250ml IV 03/21/24 17:54 Infused .Q24H PRN Titration PER PROTOCOL Protocol 0.05 MCG/KG/MIN Albumin Human 25 gm in 100 mls @ 100 mls/hr 02/22/24 13:37 02/23/24 09:40 Albuminar-25 Ivpb IV 100 mls/hr PRN PRN Administration DIALYSIS Amiodarone HCl/Dextrose 360 mg in 200 mls @ 16.667 mls/hr 02/23/24 02:00 02/23/24 02:25 Nexterone Ivpb IV 02/24/24 01:59 16.667 mls/hr .Q12H NEMO Administration Insulin Glargine 20 unit 02/22/24 21:00 02/22/24 21:20 Insulin Glargine (Lantus) 5 Unit/0.05 Ml (Per 5 Units) SC 03/23/24 20:59 20 unit HS NEMO Administration Insulin Human Lispro 0 unit 02/21/24 07:30 02/23/24 11:09 Insulin Lispro (Admelog) 1 Unit/0.01 Ml Unit SC 03/22/24 07:29 Not Given ACHS [facility] Protocol Midodrine 5 mg 02/23/24 09:00 01/07/25 10:57 Midodrine 5 Mg Tablet PO 03/24/24 08:59 5 mg TID NEMO Administration Ondansetron HCl 4 mg 02/20/24 18:40 Ondansetron Inj 2 Mg/Ml Inj 2 Ml IV 03/21/24 18:39 Q6H PRN NAUSEA OR VOMITING Protocol Pantoprazole Sodium 40 mg 02/21/24 09:15 02/23/24 10:57 Pantoprazole Inj 40 Mg Vial IV 03/22/24 09:14 40 mg QDAY NEMO Administration Pharmacy Consult 1 each 02/20/24 19:00 Vancomycin Pharmacy To Dose 1 Each Each IV 03/21/24 18:59 QDAY PRN CONSULT Ropinirole HCl 0.5 mg 02/23/24 14:00 Ropinirole Hcl 0.25 Mg Tablet PO 03/24/24 13:59 TUTHSA@1400 [facility] Sevelamer Carbonate 800 mg 02/22/24 08:00 02/23/24 10:57 Sevelamer Carbonate 800 Mg Tablet PO 03/23/24 07:59 800 mg TIDWM NEMO Administration Plan Jennifer Medina is a 73 yr female with PMH of ESRD on HD (T/VANI/SAT), hypertension, T2 diabetes mellitus, restless leg syndrome, asthma, and stomach ulcer who presented to ED from SNF after coughing up blood from past 1-2 weeks. Patient is poor historian and not willing to share much history and refusing to answer questions. GI Dr. Pate and nephrology Dr. Orellana were consulted. Patient admitted for septic shock secondary to pneumonia and evaluation of hemoptysis. Neuro: No active problems. Cardiovasc: #Septic shock 2/2 healthcare associated pneumonia. Etiology: Most likely HAP as patient resides in nursing facility and is a dialysis patient. Patient presented with elevated WBC, tachycardia, fever, tachypnea. MAP 52. She was started on norepinephrine subsequent improvement of MAP and blood pressure. Plan: -PICC line tomorrow -Continue norepinephrine per sepsis protocol. -Continue to monitor blood pressure and MAP goal greater than 65. -Antibiotics in place (refer below). #Elevated troponins-resolving Troponin I now downtrending 0.966> 0.649. Patient denies any chest pain, no acute ischemic changes on EKG. Likely NSTEMI type II in setting of septic shock. Plan: -continue trending troponin I. -echo-EF 50-55%, normal LV size and function, moderate RV dilatation. #Atrial fibrillation. Suddenly developed Afib in 150s. Reverted back to A-fib tachycardic overnight. -Started patient on additional 2 bag of amiodarone. Pulm: #Septic shock 2/2 MRSA PNA Defer CTA as of right now due to history of contrast allergy. CT chest 02/19--Dense consolidation right upper lobe indicating pneumonia 02/22 sputums cultures positive for MRSA -continue vancomycin -stop zosyn -BC negative #Hemoptysis-improving Etiology: Underlying stomach ulcer, cocci, viral infection, fungal infection, cancer, PE, PA H, Hx thrombocytopenia. Presenting since past 1-2 weeks. Denies any headache, dizziness. Plan: -treatment of underlying lung pathology as noted below Renal: #Hx ESRD on hemodialysis. Nephrology Dr. Beltre was consulted. Plan: -resume scheduled dialysis GI: #Hx stomach ulcer. Plan: -Continue pantoprazole 40 mg IV daily. Endo: #History of type 2 diabetes. On admission initial glucose 158. Last A1c 5.4 on 01/28/2022. A1c 02/22/24= 6.0. Patient continues to refuse SSI. Plan: -Held home medications. -Bedside blood glucose checks ACHS. -Insulin lispro sliding scale. -Carb consistent low diet. -20 untils daily -Monitor blood sugars and start patient on insulin drip if continue to be poorly controlled Heme/Onc: #Macrocytic anemia Etiology: Folate deficiency, B12 deficiency. Hemoglobin 11.2, MCV 102. Plan: -Continue to monitor with daily labs. #Hx thrombocytopenia. Etiology: Possibly due to underlying end-stage renal disease. Patient has never had workup for underlying cause. On admission platelet count 80. Plan: -Monitor with daily CBC. ID: #Septic shock 2/2 MRSA pneumonia. Etiology: Most likely hospital-acquired pneumonia as patient resides in SNF. Hemoptysis indicating also underlying pulmonary disease such as viral, fungal infection. Chest x-ray showedParenchymal disease in right upper lobe, Potter hump. Cocci IgM negative, RSV negative. Preliminary blood cultures negative. sputum culture 02/22 positive for MRSA Plan: -Follow-up with aspergillosis antigen test -IGRA pending. -continue vancomycin -stop 4.5 g IV Zosyn every 6 hours -stop fluconzaole 400 mg daily as cocci serology negative Health maintenance: Dispo: ICU for management of septic shock secondary to pneumonia and evaluation of hemoptysis. DVT prophylaxis: SCDs. Lines: peripheral x2. CODE STATUS:DNR. Diet: renal with low carb consistent. Plan of care discussed with attending Dr. De Paz and senior Dr. Carrion. Naty Mathew, PGY1 Attending Provider Attestation/Addendum Patient seen and examined with above resident, Naty Mathew MD. I agree with the findings, assessment, and plan of care as documented except for any differences below. Patient with continued requirement for vasopressors and intermittent atrial fibrillation with RVR with resumption of amiodarone drip overnight. Patient otherwise remains difficult to work with that she continues to decline multiple different therapies including use of insulin, declined both insulin drip and frequent glucose checks. She has continued to decline placement of central access though she does have moderate requirement for vasopressors which are running peripherally. Nursing staff are appropriately monitoring site closely. Negative testing for cocci IgM and will thus discontinue fluconazole today. Patient undergoing hemodialysis with vasopressor support with adequate fluid removal slowly over time. Patient without surrogate decision maker close she continues to be consistent on her wishes to refuse care despite understanding her severity of illness. Continue supportive care overall treatment of underlying infection as continued and optimization of her fluid status and metabolic disorders from renal failure. She fortunately has been agreeable to placement of PICC line however this was unable to be completed today due to availability. Total critical care time: I personally spent 35 minutes for review of physiologic parameters, directing plan of care throughout the day, and coordination of care with other subspecialties. This is exclusive of time spent teaching housestaff or performing any separate billable procedures. Patient continues to require critical care services for septic shock secondary to MRSA pneumonia. Patient continues to be at high risk for significant morbidity and mortality warranting ongoing care and management will be available in the intensive care unit.
[2024-02-23] MEDS: Norepinephrine/D5W 8mg/250ml 8 MG/250 ML BAG 10.618 MG IV (13:50)
[2024-02-23] MEDS: PIPERACILLIN/TAZO 2.25GM INJ 2.25 GM in SODIUM CHLORIDE 0.9% (P) 50 ML IV ×2 (14:48→21:17)
[2024-02-23] MEDS: rOPINIRole HCL 0.25 MG TABLET 0.5 MG PO (14:49)
--- NOTE | 2024-02-23 15:11 | PC.NURSE ---
Levophed drip running from 11am-1300 at 0.07 mcg/kg/min. Unable to titrate under titration d/t it saying bag was infused when it wasn't. New bag hung up at 1350.
--- NOTE | 2024-02-23 15:26 | ESPR_ITS ---
RE: DANNY VICTOR : 1950 DATE OF SERVICE: 02/23/2024 HISTORY OF PRESENT ILLNESS: Briefly, she is a 73-year-old [place] woman with longstanding diabetes, hypertension, wheelchair bound, ESRD on dialysis every Thursday, , Thursday since 2013, who presented to the emergency room on 02/20/2024 with hemoptysis for 2 weeks and was found with right upper lobe pneumonia. The patient was admitted to ICU for septic shock. The patient had dialysis yesterday, about 1.9 liters of fluid was removed and again today about 2.5 liters of fluid was removed. She is doing much better and she feels better as well. CURRENT MEDICATIONS: 1. Acetaminophen 2. Albuterol inhaler 3. Amiodarone drip 4. Folic acid 1 mg p.o. daily 5. Lantus 30 units subcutaneously at bedtime. 6. Lispro sliding scale. 7. Midodrine 5 mg p.o. t.i.d. 8. Levophed drip. 9. Ondansetron 10. Protonix 40 mg IV daily 11. Requip 0.5 mg Thursday, , Thursday 12. Sevelamer 800 mg p.o. t.i.d. with meals 13. Vancomycin PHYSICAL EXAMINATION: General: Awake, alert Vital Signs: Blood pressure 93/68, heart rate of 107. HEENT: Anicteric sclerae. Normocephalic. Neck: Supple. No JVD. Chest and Lungs: Symmetrical expansion. Clear breath sounds. Cardiac: Without murmur. Abdomen: Soft, nontender. Extremities: No edema. ASSESSMENT: 1. End-stage renal disease secondary to diabetic nephropathy and hypertensive nephrosclerosis. 2. Septic shock from right upper lobe pneumonia. 3. Right upper lobe pneumonia. 4. History of diabetes. 5. History of hypertension. LABORATORY DATA: Hemoglobin 11.5, platelets 122,000. Sodium 135, potassium 4, chloride 95, CO2 of 24.5, BUN 44, creatinine 6.1, glucose 277, phosphorus 7.3. PLAN: I will resume her Zosyn 2.25 grams IV q.8. Continue vasopressor. Continue albuterol nebs. Next dialysis will be on . On dialysis today about 2.5 liters of fluid removed. DT: 13:51:15 TT: 15:07:00 Ref: [id number] - TID: [id number] MTDD
--- NOTE | 2024-02-23 15:31 | PC.NURSE ---
picc line postponed until tomorrow per Samantha Tucker RN aware
[2024-02-23] MEDS: INSULIN GLARGINE (Lantus) 5 UNIT/0.05 ML (PER 5 UNITS) 20 UNIT SC (21:14)
[2024-02-23] MEDS: INSULIN LISPRO (AdmeLOG) 1 UNIT/0.01 ML UNIT SC (21:16)
[2024-02-24] VITALS (135 sets, daily range): BP systolic 67–130; BP diastolic 35–79; PULSE 0–128; RESP 9–86; TEMP 35.7–36.5; O2SAT 78–100; BMI 36.2
[2024-02-24 02:07] LABS: Hepatitis A Antibody IgM Non Reactive (Non React); Hepatitis B Core Antibody IgM Non Reactive (Non React); Hepatitis B Surface Ab NonReact(Not Immune) (Immune); Hepatitis B Surface Antigen Non Reactive (Non React); Hepatitis C Antibody Non Reactive (Non React)
[2024-02-24] MEDS: MIDODRINE 5 MG TABLET PO (05:42)
[2024-02-24] MEDS: PIPERACILLIN/TAZO 2.25GM INJ 2.25 GM in SODIUM CHLORIDE 0.9% (P) 50 ML IV (05:42)
[2024-02-24 06:18] LABS: Basophils # (Auto) 0.1 Thou/mm3 (0.0-0.2); Basophils % (Auto) 0 % (0-2.5); Eosinophils % (Auto) 0 % (0-10); Hematocrit 39.9 % (36.0-46.0); Hemoglobin 12.9 g/dL (12.0-16.0); Immature Granulocytes % (Auto) 1 % (0-0); Immature Granulocytes Auto 0.22 Thou/mm3 (0.00-0.00); Lymphocytes # (Auto) 0.5 Thou/mm3 (1.0-4.8); Lymphocytes % (Auto) 3 % (10-50); Mean Corpuscular HGB Conc 32.3 g/dl (31.0-37.0); Mean Corpuscular Hemoglobin 32.2 pg (25.0-35.0); Mean Corpuscular Volume 100 fL (80-100); Monocytes # (Auto) 1.8 Thou/mm3 (0.0-0.8); Monocytes % (Auto) 9 % (0-12); Neutrophils % (Auto) 86 % (37-80); Nucleated Red Blood Cell % 0 /100 WBC (0); Platelet Count 153 Thou/mm3 (140-440); RDW Standard Deviation 52.6 fL (36.4-46.3); Red Blood Count 4.01 Miln/mm3 (4.00-5.20); White Blood Count 18.6 Thou/mm3 (3.6-11.0)
[2024-02-24 07:18] LABS: Alanine Aminotransferase < 7 U/L (10-49); Albumin, Serum 4.3 gm/dL (3.4-4.8); Albumin/Globulin Ratio 1.1 (1.2-2.2); Alkaline Phosphatase 90 U/L (46-116); Anion Gap 16 (7-16); Aspartate Amino Transferase 16 U/L (0-34); BUN/Creatinine Ratio 7 Ratio (12-20); Bilirubin,Total 0.3 mg/dL (0.3-1.2); Blood Urea Nitrogen 52 mg/dL (9-23); Calcium 9.5 mg/dL (8.3-10.6); Calcium (Corrected) 9.5 mg/dL (8.5-10.1); Carbon Dioxide 24.7 mMol/L (20.0-31.0); Chloride 93 mMol/L (98-107); Creatinine (Component) 7.4 mg/dL (0.6-1.3); Estimated Creatinine Clearance 6.3 mL/min (>60); Globulin 3.9 gm/dL (2.3-3.5); Glucose 263 mg/dL (74-106); Magnesium 2.4 mg/dL (1.6-2.6); Osmolality,Calculated 291 (275-295); Phosphorous 8.3 mg/dL (2.4-5.1); Potassium 4.5 mMol/L (3.4-5.1); Sodium 134 mMol/L (136-145); Total Protein 8.2 gm/dL (5.7-8.2); eGFR 5 See Note
[2024-02-24 07:31] LABS: Vancomycin,Random 21.2 mcg/mL
[2024-02-24] MEDS: INSULIN LISPRO (AdmeLOG) 1 UNIT/0.01 ML UNIT SC ×2 (08:29→12:22)
[2024-02-24] MEDS: PANTOPRAZOLE INJ 40 MG VIAL IV (08:47)
[2024-02-24] MEDS: Norepinephrine/D5W 8mg/250ml 8 MG/250 ML BAG 16.686 MG IV (08:52)
[2024-02-24] MEDS: INSULIN LISPRO (AdmeLOG) 1 UNIT/0.01 ML UNIT 5 UNIT SC (09:42)
[2024-02-24] MEDS: AMIODARONE 150 MG IVPB 150 MG/100 ML BAG 600 MG IV (10:35)
--- NOTE | 2024-02-24 10:38 | CHAP ---
Patient was visited by a Spiritual Care Volunteer on 02/24/2024 between 0900 and 1036 and received comfort, encouragement and/or prayer.
[2024-02-24] MEDS: AMIODARONE 360 MG IVPB 360 MG/200 ML BAG 16.667 MG IV (11:05)
[2024-02-24] MEDS: PHENYLEPHRINE HCL 40 MG in SODIUM CHLORIDE 0.9% 96 ML 6.113 MG IV (11:06)
[2024-02-24] MEDS: LIDOCAINE INJ PF 1% 30 ML VIAL 4 ML INFL (15:18)
[2024-02-24] MEDS: HEPARIN SOD LOCK SYR 100 UNIT/ML 500 UNIT STFIELD (15:18)
--- NOTE | 2024-02-24 15:33 | PC.SS ---
Addendum entered and electronically signed by MARCELLO Meraz 02/24/24 15:33: [facility], fax # [phone]; pedro Powers. Original Note: MUD BOSS received phone call from patient?s sister in law, Emmanuelle Medina ; requesting written documentation indicating that patient does is not currently coherent to make decisions. Per sister in law, Emmanuelle Medina; patient?s daughter Milana Medina; has been transitioned to hospice services. Plan is for the daughter to be cremated once daughter expires. home, [facility] ([place]); requesting confirmation of the plan. Due to the patient?s current medical condition, home requesting notification that patient is unable to confirm cremation plan; allowing patient?s sister in law to provide consent to allow cremation upon expiration of patient?s daughter, Milana Medina. MARCELLO provided update to ICU resident. MUD BOSS informed by ICU resident that patient will obtain PICC line to allow administer of IV antibiotics which will address patient?s current level of lethargy. Request for written documentation pending patient?s decrease in lethargy. MUD BOSS provided update to patient?s sister in law, Emmanuelle Medina.
--- NOTE | 2024-02-24 15:59 | PC.NURSE ---
1544 patient went to IR department for picc line insertion to right upper arm, procedure attempted, not successful, report given to Lou PARIKH, patient transferred back to room 251 via hospital bed with ICU portible minitoring device.
--- NOTE | 2024-02-24 19:13 | ESPR_ITS ---
<Statement entered by Rik Carrion DO - 02/24/24 22:05> Senior attestation: Patient was examined and case was reviewed with team including attending physician. Note reviewed, I agree with most of its contents and agree with the patient's care. Overnight patient's amiodarone drip was completed and stopped, will resume IV amiodarone today. Patient's mentation noted to worsen, patient mumbles words but does not answer any questions including Alert/oriented questions. Patient noted to require vasopressor support, will add phenylephrine with goal of stopping levophed today, however difficult to wean off levophed completely as MAP was noted to drop below 65 as noted by nursing team. Spoke with case management team who has confirmed that at this time, the decision maker for patient is her brother Jose, who was contacted by ICU team regarding goals of care. He has opted for comfort care measures, but would like to bring forestry professor and see patient before starting measures, may possibly come to hospital tonight. Will continue current management until patient's decision maker has confirmed timing to initiate comfort care measures, team will be in contact with decision maker until then, may possibly happen tonight. Rik Carrion DO PGY-3 Documentation for date of: 02/24/24 Subjective Subjective Interval history: 02/21/24 Patient was seen and examined at bedside in ICU. Patient is noncompliant and refuses to answer most questions, she refused central line placement and insulin. Her IV fluids were discontinued. Patient was weaned off from norepinephrine overnight however during the day and required restart of norepinephrine at small dose. Her hemoptysis has reduced however did not resolve.Chest CT showed dense mass like consolidation in the right upper lobe with partial occlusion of right upper lobar bronchus, concerning for lung neoplasm; at the level of the aortic arch, there is a linear hyperdensity with calcification within the aortic lumen, aortic dissection cannot be excluded on this noncontrast study. Given her contrast allergy patient will not be able to undergo CTA. Fluconazole was added to her regimen today. Lactic acid downtrending from 2.2-1.2. [facility] confirm patient is taking Eliquis but we will hold it due to hemoptysis. 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 Around noon patient developed A-fib with heart rate around 150s, she was started on amiodarone drip. 02/21: Patient seen and examined at bedside. No events overnight. Patient continues to be noncompliant and refuses to answer questions along with refusal of sliding scale insulin and central line. Currently receiving Levophed from peripheral IV line. Will consult with radiology tomorrow for a possible PICC placement. Will start patient on p.o. amiodarone 200 mg twice daily once completed drip. Troponins are now downtrending. Patient underwent session of dialysis today. She continues to have hemoptysis, diamond setter in color as opposed to the day of admission. Sodium 132, potassium 5.3, platelets 120. WBCs today up trended to 19.5. Continue Vanco/Zosyn for treatment of septic shock secondary to healthcare associated pneumonia. Increase glargine from 12 units to 20 units daily as she continues to refuse sliding scale insulin. Cocci IgM negative, RSV negative, preliminary blood cultures negative, urine cultures pending. 02/22: Patient seen and examined at bedside. Overnight, patient completed amio drip but reverted back to Afib and started on additional bag of amiodarone. Continues to remain non compliant and refusing insulin. Watch sugars and start insulin drip if continue to remained uncontrolled. At this time time BS downtrending as she if refusing to eat much of her food. Scheduled for PICC line tomorrow for continued treatment of septic shock 2/2 HAP with NE 0.05mg/kg/min and van. BP continues to remain low MAPS 50-60s. Sputum cultures positive for MRSA. Discontinued zosyn. Patient is on 4L NC saturating 98-99%. WBC down trended 17.6, hemoglobin stable 11.5, platelets 122, sodium 135, potassium 4.0, bicarb 24. Patient underwent dialysis daily daily with next session planned for . 02/23: Patient seen and examined at bedside. No acute events overnight. Patient's prognosis has worsened with no response to commands, uptrending WBC 18 and continued hypotension. Levophed was weaned after addition of phenylephrine 0.5 mcg. Continue to uptitrate in order to maintain MAP greater than 65. At this time, MAP is averaging 55 with dose at 1.4mcg. PICC line attempted by IR was unsuccessful. Patient's brother Jose was contacted. Patient's prognosis and and care of management were discussed at length. Family has came to decision to start patient on comfort care measures starting at 8:30pm tonight. Exam Vital Signs Temp Pulse Resp BP Pulse Ox O2 Del Method O2 Flow Rate 97.1 F 88 25 H 109/51 L 97 Nasal Cannula 3 02/24/24 16:00 02/24/24 18:40 02/24/24 18:40 02/24/24 18:40 02/24/24 18:40 02/24/24 15:40 02/24/24 15:40 FiO2 100 02/23/24 12:14 Narrative Exam Gen: lethargic, tearful, responds to pain stimuli HEENT:, EOMI, MMM, anicteric conjunctivae. CVS: normal S1 and S2. Irregulary irregular. No M/R/G. Resp: rhonchi and crackles B/L. No rales or wheezing. Abd: soft, obese, non-tender, non-distended. BS+ in all 4 quadrants. MSK: Good ROM in BUE & BLE. Venous stasis dermatitis BLE. No edema. Neuro: CN II-XII grossly intact. Objective Labs 02/24/24 05:35 02/24/24 05:35 Labs: Laboratory Results - last 24 hr 02/22/24 02/24/24 05:59 05:35 WBC 18.6 H RBC 4.01 Hgb 12.9 Hct 39.9 MCV 100 MCH 32.2 MCHC 32.3 RDW Std Deviation 52.6 H Plt Count 153 D Neut % (Auto) 86 H Lymph % (Auto) 3 L Corson % (Auto) 9 Eos % (Auto) 0 Baso % (Auto) 0 Neut # (Auto) 16.0 H Lymph # (Auto) 0.5 L [place]on # (Auto) 1.8 H Eos # (Auto) 0.0 Baso # (Auto) 0.1 Immature Gran # (Auto) 0.22 H Absolute Nucleated RBC 0.00 Immature Gran % 1 H Nucleated RBC % 0 Sodium 134 L Potassium 4.5 D Chloride 93 L Carbon Dioxide 24.7 Anion Gap 16 BUN 52 H Creatinine 7.4 H* D Estim Creat Clear Calc 6.3 L eGFR 5 L* BUN/Creatinine Ratio 7 L Glucose 263 H Calculated Osmolality 291 Calcium 9.5 Corrected Calcium 9.5 Phosphorus 8.3 H Magnesium 2.4 Total Bilirubin 0.3 AST 16 ALT < 7 L Alkaline Phosphatase 90 Total Protein 8.2 Albumin 4.3 Globulin 3.9 H Albumin/Globulin Ratio 1.1 L Random Vancomycin 21.2 Hepatitis A IgM Ab Non Reactive Hep Bs Antigen Non Reactive Hep Bs Antibody NonReact(Not Immune) L Hep B Core IgM Ab Non Reactive Hepatitis C Antibody Non Reactive Quality Measures Quality Measures none Advance care planning discussed with:: sibling Assessment & Plan Assessment Current Active Medications: Generic Name Dose Route Start Last Admin Trade Name Freq PRN Reason Stop Dose Admin Acetaminophen 650 mg 02/24/24 09:45 Acetaminophen 325 Mg Tablet PO 03/21/24 18:39 Q6H PRN Fever >101.5 or pain (1-3) Albuterol 2 puff 02/21/24 09:36 02/22/24 08:59 Albuterol Inh 8 Gm INH 03/22/24 09:35 2 puff Q4HR PRN Administration SHORTNESS OF BREATH OR WHEEZE Dextrose 25 ml 02/20/24 18:52 Dextrose 50%-Water Inj 50 Ml Syringe IV 03/21/24 18:51 Q15MIN PRN BG 50-70 responsive npo pt Dextrose 50 ml 02/20/24 18:52 Dextrose 50%-Water Inj 50 Ml Syringe IV 03/21/24 18:51 Q15MIN PRN BG <50 OR BG <70 & pt unresponsive Folic Acid 1 mg 02/22/24 09:00 02/24/24 09:13 Folic Acid 1 Mg Tablet PO 03/23/24 08:59 Not Given QDAY NEMO Glucagon 1 mg 02/20/24 18:52 Glucagon Inj 1 Mg Vial IM Q15MIN PRN BG <70, and no IV access Heparin Sodium (Porcine) 3,300 unit 02/22/24 14:55 02/23/24 11:55 Heparin Sod Inj 1000 Unit/Ml Vial 10 Ml INDWELLCAT 03/07/24 14:54 3,300 unit X1 PRN Administration DIALYSIS Albumin Human 25 gm in 100 mls @ 100 mls/hr 02/22/24 13:37 02/23/24 09:40 Albuminar-25 Ivpb IV 100 mls/hr PRN PRN Administration DIALYSIS Phenylephrine HCl 40 mg/ 100 mls @ 6.113 mls/hr 02/24/24 10:06 02/24/24 16:00 Sodium Chloride IV 03/25/24 10:05 0.6 mcg/kg/min .[id number] PRN 7.335 mls/hr Per Sepsis Protocol Titration Protocol 0.5 MCG/KG/MIN Amiodarone HCl/Dextrose 360 mg in 200 mls @ 16.667 mls/hr 02/24/24 10:40 02/24/24 11:05 Nexterone Ivpb IV 02/29/24 10:39 16.667 mls/hr .Q12H NEMO Administration Protocol Insulin Glargine 20 unit 02/22/24 21:00 02/23/24 21:14 Insulin Glargine (Lantus) 5 Unit/0.05 Ml (Per 5 Units) SC 03/23/24 20:59 20 unit HS NEMO Administration Insulin Human Lispro 0 unit 02/21/24 07:30 02/24/24 18:46 Insulin Lispro (Admelog) 1 Unit/0.01 Ml Unit SC 03/22/24 07:29 Not Given ACHS NEMO Protocol Midodrine 5 mg 02/23/24 09:00 02/24/24 14:24 Midodrine 5 Mg Tablet PO 03/24/24 08:59 Not Given TID NEMO Ondansetron HCl 4 mg 02/20/24 18:40 Ondansetron Inj 2 Mg/Ml Inj 2 Ml IV 03/21/24 18:39 Q6H PRN NAUSEA OR VOMITING Protocol Pantoprazole Sodium 40 mg 02/21/24 09:15 02/24/24 08:47 Pantoprazole Inj 40 Mg Vial IV 03/22/24 09:14 40 mg QDAY NEMO Administration Pharmacy Consult 1 each 02/20/24 19:00 Vancomycin Pharmacy To Dose 1 Each Each IV 03/21/24 18:59 QDAY PRN CONSULT Sevelamer Carbonate 1,600 mg 02/24/24 12:00 02/24/24 17:30 Sevelamer Carbonate 800 Mg Tablet PO 03/25/24 11:59 Not Given TIDWM NEMO Plan Jennifer Medina is a 73 yr female with PMH of ESRD on HD (T/VANI/THU), hypertension, T2 diabetes mellitus, restless leg syndrome, asthma, and stomach ulcer who presented to ED from SNF after coughing up blood from past 1-2 weeks. Patient is poor historian and not willing to share much history and refusing to answer questions. GI Dr. Pate and nephrology Dr. Orellana were consulted. Patient admitted for septic shock secondary to pneumonia and evaluation of hemoptysis. Due to deteriorating status, patient's brother was contacted and plan was made to start comfort care measures at 8:30pm. Neuro: No active problems. Cardiovasc: #Septic shock 2/2 MRSA pneumonia. Etiology: Most likely HAP as patient resides in nursing facility and is a dialysis patient. Patient presented with elevated WBC, tachycardia, fever, tachypnea. MAP 52. She was started on norepinephrine subsequent improvement of MAP and blood pressure. Plan: -PICC line was unsuccessful -wean and stop norepinephrine -start phenylephrine 0.5 mcg and titrate up to maintain MAP goal greater than 65 -Antibiotics in place (refer below). #Elevated troponins-resolved Troponin I now downtrending 0.966> 0.649. Patient denies any chest pain, no acute ischemic changes on EKG. Likely NSTEMI type II in setting of septic shock. Plan: -continue trending troponin I. -echo-EF 50-55%, normal LV size and function, moderate RV dilatation. #New onset Atrial fibrillation. Suddenly developed Afib in 150s. -continue IV amiodarone Pulm: #Septic shock 2/2 MRSA PNA Defer CTA as of right now due to history of contrast allergy. CT chest 02/19--Dense consolidation right upper lobe indicating pneumonia 02/22 sputums cultures positive for MRSA -continue vancomycin -stop zosyn -BC negative #Hemoptysis-improving Etiology: Underlying stomach ulcer, cocci, viral infection, fungal infection, cancer, PE, PA H, Hx thrombocytopenia. Presenting since past 1-2 weeks. Denies any headache, dizziness. Plan: -treatment of underlying lung pathology as noted below Renal: #Hx ESRD on hemodialysis. Nephrology Dr. Beltre was consulted. Plan: -resume scheduled dialysis GI: #Hx stomach ulcer. Plan: -Continue pantoprazole 40 mg IV daily. Endo: #History of type 2 diabetes. On admission initial glucose 158. Last A1c 5.4 on 01/28/2022. A1c 02/22/24= 6.0. Patient continues to refuse SSI. Plan: -Held home medications. -Bedside blood glucose checks ACHS. -Insulin lispro sliding scale. -Carb consistent low diet. -20 untils daily -Monitor blood sugars and start patient on insulin drip if continue to be poorly controlled Heme/Onc: #Macrocytic anemia Etiology: Folate deficiency, B12 deficiency. Hemoglobin 11.2, MCV 102. Plan: -Continue to monitor with daily labs. #Hx thrombocytopenia. Etiology: Possibly due to underlying end-stage renal disease. Patient has never had workup for underlying cause. On admission platelet count 80. Plan: -Monitor with daily CBC. ID: #Septic shock 2/2 MRSA pneumonia. Etiology: Most likely hospital-acquired pneumonia as patient resides in SNF. Hemoptysis indicating also underlying pulmonary disease such as viral, fungal infection. Chest x-ray showedParenchymal disease in right upper lobe, Potter hump. Cocci IgM negative, RSV negative. Preliminary blood cultures negative. sputum culture 02/22 positive for MRSA Plan: -aspergillosis antigen test pening -IGRA pending. -continue vancomycin Health maintenance: Dispo: ICU for management of septic shock secondary to pneumonia and evaluation of hemoptysis. Plan to start comfort care measures at 8:30 pm 02/24/24. DVT prophylaxis: SCDs. Lines: peripheral x2. CODE STATUS:DNR. Diet: renal with low carb consistent. Plan of care discussed with attending Dr. De Paz and senior Dr. Carrion. Naty Mathew, PGY1 Attending Provider Attestation/Addendum Patient seen and examined with above resident, Naty Mathew MD. I agree with the findings, assessment, and plan of care as documented separately differences below. Patient continues to have septic shock secondary to MRSA pneumonia. Patient remains on appropriate antibiotic regimen with discontinuation of Zosyn. Patient remains afebrile. Increasing requirements for vasopressors likely in setting of volume removal with hemodialysis along with atrial fibrillation with RVR. Amiodarone drip was discontinued overnight but RVR persisted again this morning and additional bolus was given followed by reinitiation of separately at 0.5 mg/min. Patient with decreasing p.o. intake and worsening mentation. Levophed requirements did improve and we will plan to transition over to phenylephrine. Patient's family was contacted by case management and we were able to find brother lives in [place]. They are trying to determine who will be surrogate decision maker is the patient's mentation now is worsening. Notably she had continued to refuse care even throughout the night. Declined use of insulin as well as checks. Patient pending PICC placement today as we were unable to pass the guidewire during IJ cannulation due to pre-existing dialysis catheter. Consent was taken from the brother now that the patient is unable to provide consent herself. Patient with poor overall prognosis and when family does arrive plan to discuss potential transition to comfort care/hospice given her overall desire to minimize intervention in the previous days. Total critical care time: I personally spent 40 minutes for review of physiologic parameters, directing plan of care throughout the day, and coordination of care with other specialties. This is exclusive of time spent teaching housestaff or performing any separate billable procedures.
--- NOTE | 2024-02-24 19:30 | PC.NURSE ---
DR. MCCLAIN SPOKE WITH BROTHER MARLEN OVER PHONE. STATES HE WILL COME AND SEE PATIENT. BROTHER IS COMING FROM [place]. HE WOULD LIKE A BRADY TO BE PRESENT. KATI JIMÉNEZ MADE AWARE. DID LET BRADY AWARE OF REQUESTING LAST RIGHTS WHEN THE BROTHER ARRIVES TO PLACE PT ON COMFORT CARE.
--- NOTE | 2024-02-24 20:07 | PC.NURSE ---
SPOKE WITH DR. WESTBROOK, DO NOT GIVEN PO MEDS/INSULIN FOR NOW. PT WILL BE COMFORT MEASURES WHEN BROTHER MARLEN ARRIVES APPROX 2030
[2024-02-24] MEDS: PHENYLEPHRINE HCL 40 MG in SODIUM CHLORIDE 0.9% 96 ML 21.394 MG IV (20:18)
--- NOTE | 2024-02-24 20:35 | PC.NURSE ---
RN ATTEMPTED TO SPEAK WITH MARLEN, BROTHERX2 NO ANSWER. VOICEMAIL LEFT. SPOKE WITH SIS IN LAW NESSA ATTEMPTING TO REACH BROTHER. MICHEL IS UPDATED WITH PLAN OF CARE OF PT AND STATES THAT MARLEN IS ON HIS WAY TO HOSPITAL. EXPLAINED THAT COMFORT CARE MAEASURES WERE GOING TO BE INITIATED ONCE BROTHER ARRIVES. SHE WOULD LIKE TO MAKE THE PT COMFORTABLE AT THIS MOMENT AND STATES BROTHER WILL UNDERSTAND. SHE WOULD LIKE LAST RIGHTS PERFORMED. BRADY PRESENT. LAST RIGHTS GIVEN.
[2024-02-24] MEDS: MORPHINE SULF INJ 10 MG/ML VIAL 5 MG IVP (20:40)
[2024-02-24] MEDS: LORazepam 2 MG/ML VIAL 1 MG IVP (20:47)
--- NOTE | 2024-02-24 21:04 | DES_ITS ---
Documentation for date of: 02/24/24 Pronouncement Note Date and Time of Date of : 02/24/24 Time of : 20:57 PCOD Preliminary cause of : Cardiopulmonary arrest Summary Additional details: Called to see patient for unresponsiveness. On exam the patient was unresponsive, no spontaneous movement observed, pt did not respond to verbal or noxious stimuli. Absent heart and breath sounds for more than 2 minute. Pupils are fixed and dilated, corneal reflex was absent. Patient pronounced at 20:57 on 02/24/2024. My supervising attending physician Dr. Kearney was notified. Next of kin/family notified. Matthew Gerardo M.D. Internal Medicine PGY-3 Additional Data Confirmation of : no pulse, no respirations, no heart sounds and pupils fixed and dilated Family: contacted Additional persons at bedside: retail cosmetics sales beauty advisor Attending/PCP notified?: Yes Attending physician: El Kearney MD Was code activated?: No license examiner notified?: No Organ bank notified?: Yes Advance directives: No
[2024-02-25 22:07] LABS: Index Value <0.50
--- NOTE | 2024-02-25 22:43 | PD.DDS ---
Documentation for date of: 02/25/24 Summary Date and Time Date of admission: 02/20/24 18:41 Date of : 02/24/24 Time of : 20:57 Summary Details: Confirmation of : no pulse, no respirations, no heart sounds and pupils fixed and dilated Family: contacted Additional persons at bedside: manufacturing plant controller Date of : 02/24/24 Time of : 20:57 Hospital Course: Jennifer Medina : 1950 Time of : 02/24/24 and 20:57 Attending: Dr. Rudy De Paz MD Cause of : cardiopulmonary arrest Patient had PMH of ESRD on HD (//Thu), hypertension, T2DM, restless leg syndrome, asthma, and stomach ulcer who presented to the ED on 02/20/24 from SNF with concerns of hemoptysis for 2 weeks, was found to be hypotensive with recorded blood pressure 73/42 upon arrival. Patient was started on levophed in the ED and upgraded to ICU for continuation of pressors and started on vancomycin and zosyn. During hospitalization, patient declined most medical treatments and intervention including insulin, arterial lines, PICC line, and IV access. One IV access was established after consent through witch fluids, pressors, and IV antibioitics were given. She was switched to phenylephrine on the second day despite which she continued to remain hypotensive. She did receive dialysis for two days after consultation with nephrology Dr. Beltre. Patient's sepsis did not resolve and patient on 02/24/24. Family was notified at the time of and condolences were given. Per families request, the manufacturing plant controller was at bedside. Additional Data Attending physician: Rudy De Paz MD Visit Providers Provider Primary care physician: Jose Bauer MD Discharge Plan Plan Patient Disposition: Prescriptions/Referrals Referrals: Jose Bauer MD [Primary Care Provider] - Patient/Caregiver Discharge Instructions Print Language: Greenlandic
--- NOTE | 2024-02-25 23:34 | DES_ITS ---
<Statement entered by Rudy De Paz MD - 02/26/24 13:54> I have reviewed and agree with the above documentation. Patient has been transition to comfort care at request of family, succumbed eventually to MRSA pneumonia and associated septic shock. Documentation for date of: 02/25/24 Summary Date and Time Date of admission: 02/20/24 18:41 Summary Hospital Course: Jennifer Medina : 1950 Time of : 02/24/24 and 20:57 Attending: Dr. Rudy De Paz MD Cause of : cardiopulmonary arrest Patient had PMH of ESRD on HD (//Thu), hypertension, T2DM, restless leg syndrome, asthma, and stomach ulcer who presented to the ED on 02/20/24 from SNF with concerns of hemoptysis for 2 weeks, was found to be hypotensive with recorded blood pressure 73/42 upon arrival. Patient was started on levophed in the ED and upgraded to ICU for continuation of pressors and started on vancomycin and zosyn. During hospitalization, patient declined most medical treatments and intervention including insulin, arterial lines, PICC line, and IV access. One IV access was established after consent through witch fluids, pressors, and IV antibioitics were given. She was switched to phenylephrine on the second day despite which she continued to remain hypotensive. She did receive dialysis for two days after consultation with nephrology Dr. Beltre. Patient's sepsis did not resolve and patient on 02/24/24. Family was notified at the time of and condolences were given. Per families request, the stranner was at bedside. Additional Data Attending physician: Rudy De Paz MD Visit Providers Provider Primary care physician: Jose Bauer MD Attending physician on admission: Rudy De Paz Discharge Plan Plan Patient Disposition: Prescriptions/Referrals Referrals: Jose Bauer MD [Primary Care Provider] - Patient/Caregiver Discharge Instructions Print Language: Kiswahili
[2024-02-26 06:30] LABS: Aspergillus Ag, Ser* NOT DETECTED
== END 2024-02-24 20:57 | disposition expired | DRG 871 ==
LOC: SERX 19:05 → SERHOLD 19:33 → S2SX 02-21 06:46 → SERHOLD 02-22 06:17 → S2SX 02-22 06:17
PROVIDERS: Internal Medicine Nephrology; Student in an Organized Health Care Education/Training Program; Admitting Provider Internal Medicine Critical Care Medicine; Emergency Provider Emergency Medicine; PCP Family Medicine; Visit Provider Internal Medicine Critical Care Medicine
DX: A41.9 Sepsis, unspecified organism (principal); J15.212 Pneumonia due to Methicillin resistant Staphylococcus aureus; N18.6 End stage renal disease; R65.21 Severe sepsis with septic shock; R04.2 Hemoptysis; I13.2 Hypertensive heart and chronic kidney disease with heart failure and with stage 5 chronic kidney disease, or end stage renal disease; G25.81 Restless legs syndrome; Z99.2 Dependence on renal dialysis; J45.909 Unspecified asthma, uncomplicated; K64.9 Unspecified hemorrhoids; I50.9 Heart failure, unspecified; Z91.041 Radiographic dye allergy status; Y95 Nosocomial condition; E11.22 Type 2 diabetes mellitus with diabetic chronic kidney disease; Z66 Do not resuscitate; D53.9 Nutritional anemia, unspecified; Z99.3 Dependence on wheelchair; I48.91 Unspecified atrial fibrillation; D69.6 Thrombocytopenia, unspecified; I46.9 Cardiac arrest, cause unspecified; Z91.199 Patient's noncompliance with other medical treatment and regimen due to unspecified reason
CPT/HCPCS: 36415; 71045; 71250; 80053; 80061; 80074; 80202; 81001; 82607; 82746; 83036; 83605; 83735; 83880; 84100; 84145; 84443; 84484; 85025; 85610; 85730; 86331; 86480; 86635; 86706; 86850; 86900; 86901; 86923; 87040; 87077; 87081; 87086; 87186; 87205; 87305; 87400; 87449; 87502; 87634; 87811; 93005; 93225; 93306; 94640; 94664; 96365; 99291; J0283; J0696; J1450; J1642; J1643; J1815; J2060; J2270; J2371; J2470; J2543; J3370; J3475; J3490; J7030; J7050; P9047; A9270